=== PATIENT | male | born 1970 | race Caucasian/White ===

== ENCOUNTER 2023-12-09 05:48 | Emergency (ER) | payer MEDICAID, SELFPAY ==
[2023-12-09 05:50] VITALS: BP 172/102; PULSE 103; RESP 14; TEMP 36.6; O2SAT 100; BMI 33.3
--- NOTE | 2023-12-09 06:27 | EX.ED.DYSGE1 ---
HPI <Dr. Rangel Guzmán DO - Last Filed: 12/09/23 08:09> History of Present Illness Chief Complaint: Anxiety Informant: patient Onset/Context/Timing Onset: Today Context: Sudden Onset Timing: Continuous Quality: Aching, cramping Location: Left abdomen and left chest Worsened by: Nothing Relieved by: Nothing Narrative Narrative: Patient presents with chest pain, sweating, and abdominal pain that began today. Patient states he was recently admitted to [facility] and had his antidepressant changed. Patient states that since that time he has been having some increasing tremors and feeling disoriented. Patient states that when he woke up today he felt very disoriented and did not know where he was at. Patient states he woke up with diffuse sweating. Patient states he noted some pain in his chest. Patient states this is improving. Patient states he is also having some aching pain in the left side of his abdomen. Patient states that it is constant. Patient states nothing makes his symptoms better nothing makes them worse. [facility] <Dr. Rangel Guzmán DO - Last Filed: 12/09/23 08:09> [facility] Medical History (Updated 12/09/23 @ 09:[address] Lydia Bedoya DO) Anxiety Depressed Fibromyalgia Hypertension Home Medications Unobtainable 12/09/23 [History Last Taken Unknown] Allergy/AdvReac Type Severity Reaction Status Date / Time Penicillins Allergy Angioedema Verified 12/09/23 05:49 Surgical History no surgical history no surgical history Social History Smoking Status: Never smoker ROS <Dr. Rangel Guzmán DO - Last Filed: 12/09/23 08:09> ROS ED Constitutional Constitutional ED: Reports sweats; Denies chills or fever(s) Eyes Eyes: Denies blurry vision or change in vision ENT ENT ED: Denies rhinorrhea or sore throat Cardiovascular Cardiovascular: Reports chest pain; Denies palpitations Respiratory/Chest Respiratory/Chest: Denies cough or dyspnea Gastrointestinal Gastrointestinal: Reports abdominal pain, diarrhea and nausea; Denies melena or vomiting Genitourinary Genitourinary ED: Denies dysuria or hematuria Musculoskeletal Musculoskeletal: Denies back pain or neck pain Integumentary Reports rash; Denies abscess Neurologic Neurologic: Denies headache(s) or weakness Allergic/Immunologic Allergic/Immunologic ED: Denies mouth swelling or urticaria EXAM <Dr. Rangel Guzmán, DO - Last Filed: 12/09/23 08:09> Physical Exam Const Vital Signs: 12/09/23 05:50 12/09/23 06:36 Temperature 98 F Temperature Source Temporal Pulse Rate 103 H 100 Respiratory Rate 14 19 H Blood Pressure 172/102 H 165/107 H Blood Pressure Mean 125 126 Pulse Ox 100 100 Oxygen Delivery Method Room Air Positive well nourished and well developed General Appearance ED: well developed and NAD HEENT Reports moist mucous membranes Neck supple and no JVD Chest Wall inspection of chest normal and palpation of chest normal Resp normal respiratory effort and clear to auscultation bilaterally Cardio regular rate and regular rhythm GI non-distended Palpation: soft and tender LLQ and LUQ Neuro oriented x3, CN's II-XII intact bilaterally and no sensory deficits noted Sensorium / Orientation: alert Motor Exam: strength 5/5 throughout Psych mental status grossly normal <Dr. Lydia Bedoya, DO - Last Filed: 12/09/23 09:48> Physical Exam Const Vital Signs: 12/09/23 05:50 12/09/23 06:36 Temperature 98 F Temperature Source Temporal Pulse Rate 103 H 100 Respiratory Rate 14 19 H Blood Pressure 172/102 H 165/107 H Blood Pressure Mean 125 126 Pulse Ox 100 100 Oxygen Delivery Method Room Air MDM <Dr. Rangle Guzmán, DO - Last Filed: 12/09/23 08:09> MDM MDM Narrative Medical decision making narrative: Differential diagnosis includes medication side effect, cardiac dysrhythmia, cardiac ischemia, pneumonia, diverticulitis, colitis, ureteral calculus, urinary tract infection, pyelonephritis, and anxiety. EKG will be obtained to assess for cardiac dysrhythmia and cardiac ischemia. CBC will be obtained to assess for leukocytosis and anemia. Comprehensive metabolic profile will be obtained to assess for hepatic function, renal function, and electrolyte abnormality. Lipase will be obtained to assess for pancreatitis. Urinalysis will be obtained to assess for urinary tract infection and hematuria. High-sensitivity troponin will be obtained to assess for cardiac ischemia. 2-hour repeat high-sensitivity troponin will be obtained to assess for ongoing cardiac ischemia. CT scan of the abdomen and pelvis will be obtained to assess for diverticulitis, bowel obstruction, perforation. Chest x-ray will be obtained to assess for pneumonia and pneumothorax. PT with INR and PTT will be obtained to assess for coagulopathy. Lab Data Attestation: I reviewed the patient's lab results. Lab results narrative: CBC was reviewed and was within normal limits. PT was INR and PTT were reviewed and were within normal limits. Prehensile metabolic profile was reviewed and was within normal limits. Lipase was reviewed and was normal. Urinalysis was reviewed. There is no evidence of urinary tract infection or hematuria. Labs: Laboratory Results - last 24 hr 12/09/23 12/09/23 06:45 08:59 WBC 9.8 RBC 4.97 Hgb 15.9 Hct 47.6 MCV 95.8 H MCH 32.0 MCHC 33.4 RDW Std Deviation 45.6 H RDW Coeff of Hubert 12.9 Plt Count 305 MPV 9.7 Immature Gran % (Auto) 0.400 Neut % (Auto) 58.7 Lymph % (Auto) 28.0 [place] % (Auto) 9.6 Eos % (Auto) 2.1 Baso % (Auto) 1.2 H Absolute Neuts (auto) 5.7 Absolute Lymphs (auto) 2.74 Nucleated RBC % 0 PT 12.5 INR 0.9 APTT 26.0 Sodium 137 Potassium 4.1 Chloride 105 Carbon Dioxide 24.0 Anion Gap 8 BUN 6 L Creatinine 1.01 Estim Creat Clear Calc 109.52 Est GFR (MDRD) Af Amer 99 Est GFR (MDRD) Non-Af 82 BUN/Creatinine Ratio 5.9 L Glucose 118 H Calcium 9.2 Total Bilirubin 0.50 AST 49 H ALT 57 Alkaline Phosphatase 96 Troponin I High Sens 5 4 Total Protein 8.1 Albumin 3.9 Globulin 4.2 Albumin/Globulin Ratio 0.9 Lipase 26 Urine Color Yellow Urine Clarity Clear Urine pH 6.0 Ur Specific [place] 1.020 Urine Protein Negative Urine Glucose (UA) Normal Urine Ketones Negative Urine Occult Blood Negative Urine Nitrite Negative Urine Bilirubin Negative Urine Urobilinogen Normal Ur Leukocyte Esterase Negative Urine RBC 0 SEEN Urine WBC 0 SEEN Ur Squamous Epith Cells 0 SEEN Urine Bacteria 0 SEEN Urine Mucus 0 SEEN Radiography Diagnostic Testing: Clinical Impression(s) from Imaging Studies Abdomen/Pelvis CT 12/09/23 06:33 IMPRESSION: Questionable tiny gallstones in the neck of the gallbladder. Calcified splenic granulomas. Filling defects seen in the region of the cecum most likely representing fecal material. Electronically Signed: Yao Moses MD at 8:58 EST , Chest X-Ray 12/09/23 08:35 IMPRESSION: Scattered calcified granulomas. No acute abnormality is seen. Electronically Signed: Yao Moses MD at 8:47 EST , EKG Initial EKG: Attestation: I personally reviewed and interpreted this EKG as follows: Interpretation: No Acute Injury Pattern and Sinus Tachycardia (102) Comments: EKG was obtained. On my independent interpretation, it showed a sinus tachycardia with a rate of 102. TN interval, QRS interval, and QTc intervals were all normal. [place] was normal. There are no acute ST or T wave changes. Prior EKG tracings: not available for review Prior: No Prior Treatment and Re-Evaluation :: Patient was given a dose of Vistaril here. Care of the patient was turned over the oncoming physician pending CT and x-ray results. <Dr. Lydia Bedoya, DO - Last Filed: 12/09/23 09:48> [facility] MDM Narrative Medical decision making narrative: Differential diagnosis includes medication side effect, cardiac dysrhythmia, cardiac ischemia, pneumonia, diverticulitis, colitis, ureteral calculus, urinary tract infection, pyelonephritis, and anxiety. EKG will be obtained to assess for cardiac dysrhythmia and cardiac ischemia. CBC will be obtained to assess for leukocytosis and anemia. Comprehensive metabolic profile will be obtained to assess for hepatic function, renal function, and electrolyte abnormality. Lipase will be obtained to assess for pancreatitis. Urinalysis will be obtained to assess for urinary tract infection and hematuria. High-sensitivity troponin will be obtained to assess for cardiac ischemia. 2-hour repeat high-sensitivity troponin will be obtained to assess for ongoing cardiac ischemia. CT scan of the abdomen and pelvis will be obtained to assess for diverticulitis, bowel obstruction, perforation. Chest x-ray will be obtained to assess for pneumonia and pneumothorax. PT with INR and PTT will be obtained to assess for coagulopathy. Patient care turned over to me, Lydia Bedoya, awaiting results of CT abdomen pelvis as well as chest x-ray and delta troponin. Patient apparently presented this morning with pain in his left lower abdomen for over a week. He is also had some sweats this morning and felt anxious and like his chest hurt. Patient tells me that he is a alcoholic and his last drink was about 24 hours ago. Patient was given Vistaril here and he currently feels improved his chest pain is resolved. CT of the abdomen pelvis essentially with questionable tiny gallstones in the neck of the gallbladder otherwise no acute process. Chest x-ray was unremarkable. Patient asked if we have detox from alcohol here at the hospital I told him that we did and would be happy to facilitate that for him however he states he has to go home and does not want to go directly upstairs. He states he has some things that he needs to take care of at home. Patient normally drinks about 8 tall beers per day and has been doing that for years off-and-on. Suspect some of his symptomatology may have been related to alcohol withdrawal which is what he speculates as well he ALSO does have history of anxiety. He is not suicidal. He is currently going through some medication adjustments. He does not want to speak with a counselor. Lab Data Labs: Laboratory Results - last 24 hr 12/09/23 12/09/23 06:45 08:59 WBC 9.8 RBC 4.97 Hgb 15.9 Hct 47.6 MCV 95.8 H MCH 32.0 MCHC 33.4 RDW Std Deviation 45.6 H RDW Coeff of Hubert 12.9 Plt Count 305 MPV 9.7 Immature Gran % (Auto) 0.400 Neut % (Auto) 58.7 Lymph % (Auto) 28.0 [place] % (Auto) 9.6 Eos % (Auto) 2.1 Baso % (Auto) 1.2 H Absolute Neuts (auto) 5.7 Absolute Lymphs (auto) 2.74 Nucleated RBC % 0 PT 12.5 INR 0.9 APTT 26.0 Sodium 137 Potassium 4.1 Chloride 105 Carbon Dioxide 24.0 Anion Gap 8 BUN 6 L Creatinine 1.01 Estim Creat Clear Calc 109.52 Est GFR (MDRD) Af Amer 99 Est GFR (MDRD) Non-Af 82 BUN/Creatinine Ratio 5.9 L Glucose 118 H Calcium 9.2 Total Bilirubin 0.50 AST 49 H ALT 57 Alkaline Phosphatase 96 Troponin I High Sens 5 4 Total Protein 8.1 Albumin 3.9 Globulin 4.2 Albumin/Globulin Ratio 0.9 Lipase 26 Urine Color Yellow Urine Clarity Clear Urine pH 6.0 Ur Specific [place] 1.020 Urine Protein Negative Urine Glucose (UA) Normal Urine Ketones Negative Urine Occult Blood Negative Urine Nitrite Negative Urine Bilirubin Negative Urine Urobilinogen Normal Ur Leukocyte Esterase Negative Urine RBC 0 SEEN Urine WBC 0 SEEN Ur Squamous Epith Cells 0 SEEN Urine Bacteria 0 SEEN Urine Mucus 0 SEEN Radiography Diagnostic Testing: Clinical Impression(s) from Imaging Studies Abdomen/Pelvis CT 12/09/23 06:33 IMPRESSION: Questionable tiny gallstones in the neck of the gallbladder. Calcified splenic granulomas. Filling defects seen in the region of the cecum most likely representing fecal material. Electronically Signed: Yao Moses MD at 8:58 EST , Chest X-Ray 12/09/23 08:35 IMPRESSION: Scattered calcified granulomas. No acute abnormality is seen. Electronically Signed: Yao Moses MD at 8:47 EST , Discharge Plan Triage Chief Complaint: Anxiety ED Provider: Rangel Guzmán Dx/Rx/DC Orders Clinical Impression: Chest pain, Anxiety, Left sided abdominal pain, Alcohol withdrawal Instructions: ED Withdrawal Alcohol, ED Anxiety Reaction, ED Chest Pain, Uncertain Cause, ED Abdominal Pain Unkn Cause Male... Prescriptions: No Action Unobtainable Primary Care Provider: Shasha Newman NP Referrals: Shasha Newman NP, PREDICTIVE MAINTENANCE SPECIALIST-C [Primary Care Provider] - 3-5 Days Disposition Disposition: Home, Self Care
--- NOTE | 2023-12-09 06:33 | CT_ITS ---
STUDY: CT ABDOMEN AND PELVIS WITH CONTRAST REASON FOR EXAM: Male, 53 years old. Left-sided abdominal pain. Chest pain. RADIATION DOSAGE (If Supplied By Facility): CTDIvol = ( 17.43 ) mGy, DLP = ( 1324.72 ) mGycm TECHNIQUE: Transaxial images were obtained from the dome of the diaphragm to the symphysis pubis without oral contrast. 100ML ISOVUE 300 was administered. Sagittal and coronal images were reconstructed. Individualized dose optimization techniques were used for this CT. COMPARISON: None. FINDINGS: The visualized lung bases are unremarkable. The visualized portions of the heart are within normal limits. Normal liver. Question tiny gallstones in the neck of the gallbladder. There are multiple benign calcified granulomata of the spleen. Normal pancreas. Normal bilateral adrenal glands. Normal right kidney. Normal left kidney. There is a small hiatal hernia. Normal small intestine. Filling defects are seen in the cecum most likely representing fecal material. The appendix is visualized and appears normal. Normal abdominal aorta. Normal inferior vena cava. Normal retroperitoneum. Normal urinary bladder. Normal abdominal wall. There are mild degenerative changes of the visualized lumbar spine. CT/Abdomen/Pelvis WITH Contrast IMPRESSION: Questionable tiny gallstones in the neck of the gallbladder. Calcified splenic granulomas. Filling defects seen in the region of the cecum most likely representing fecal material. Electronically Signed: Yao Moses MD at 8:58 EST ,
--- NOTE | 2023-12-09 06:33 | EKG12_ITS ---
Test Reason : CP Blood Pressure : / mmHG Vent. Rate : 102 BPM Atrial Rate : 102 BPM P-R Int : 138 ms QRS Dur : 090 ms QT Int : 342 ms P-R-T Axes : 064 051 029 degrees QTc Int : 445 ms Sinus tachycardia Otherwise normal ECG Confirmed by ARVIND TAPIA, AMANDA ([id number]), sound editor VISHNU OVALLES ([id number]) on 12/10/2023 9:41:25 AM Referred By: CHARLES Confirmed By:AMANDA SAMUELS MD
[2023-12-09 06:36] VITALS: BP 165/107; PULSE 100; RESP 19; O2SAT 100
--- NOTE | 2023-12-09 06:41 | ED.RN ---
NO OLD EKG
[2023-12-09 06:50] LABS: Bacteria 0 SEEN /hpf (None Seen); Mucous, Urine 0 SEEN /hpf (<or=2+); Red Blood Cells-Urine 0 SEEN /hpf (0-5); Squamous Epithelial Cells - UA 0 SEEN /hpf (0-5); White Blood Cells 0 SEEN /hpf (0-5)
[2023-12-09 06:52] LABS: Absolute Lymphocyte Count 2.74 X10^3/uL (0.83-4.51); Absolute Neutrophil Count 5.7 X10^3/uL (2.0-7.7); Basophil# 0.12 X10^3/uL; Basophil% 1.2 % (0-1); Eosinophil# 0.21 X10^3/uL; Eosinophils% 2.1 % (0-5); Hematocrit 47.6 % (40-54); Hemoglobin 15.9 g/dL (13.0-16.5); Lymphocyte # 2.74 X10^3/ul (0.83-4.51); Mean Corp Hgb Conc 33.4 g/dL (32-36); Mean Corpuscular Volume 95.8 fL (80-94); Mean Platelet Vol. 9.7 fl (6.2-12.0); Monocyte# 0.94 X10^3/uL; Monocyte% 9.6 % (0-10); NRBC Flagged by Analyzer 0 % (0-5); Neutrophil # 5.73 X10^3/uL (2.7-7.7); Neutrophil % 58.7 % (47-70); Platelet Count 305 K/mm3 (150-450); RBC Distribution Width CV 12.9 % (11.6-14.6); RBC Distribution Width SD 45.6 fl (35.1-43.9); Red Blood Count 4.97 M/mm3 (4.6-6.2); White Blood Count 9.8 K/mm3 (4.4-11.0)
[2023-12-09 06:55] LABS: Color, Urine Yellow (Yellow); Glucose, Dipstick Normal (Normal); Ketone-Dipstick Negative (Negative); Leukocyte Esterase-Dipstick Negative /ul (Negative); Nitrite-Dipstick Negative (Negative); Occult Blood-Urine Negative /ul (Negative); Protein-Dipstick Negative (Negative); Urine Bilirubin Dipstick Negative (Negative); Urine Clarity Clear (Clear); Urine Urobilinogen Normal (Normal)
[2023-12-09] MEDS: 0.9% Normal Saline (1000mL) 1,000 ML 1000 ML IV (07:00)
[2023-12-09] MEDS: hydrOXYzine PAM 25 MG Capsule PO (07:00)
[2023-12-09 07:12] LABS: ALB/GLOB Ratio 0.9 RATIO (0.9-2.4); AST(SGOT) 49 U/L (15-37); Alanine Aminotransfer ALT/SGPT 57 U/L (16-61); Albumin, Serum 3.9 g/dL (3.2-5.0); Alkaline Phosphatase 96 U/L (45-117); Anion Gap 8 (5-15); BUN 6 mg/dL (7-18); BUN/Creat Ratio 5.9 RATIO (10-20); Calcium,Total 9.2 mg/dL (8.5-10.1); Chloride 105 mmol/L (98-107); Creatinine, Serum 1.01 mg/dL (0.70-1.30); EST Glomerular Filtration Rate 82 mL/min (>60); Est Glom Filt Rate - Afr Amer 99 mL/min (>60); Estimated Creatinine Clearance 109.52 ml/min; Globulin 4.2 g/dL (2.2-4.2); Glucose 118 mg/dL (74-106); Lipase 26 U/L (13-75); Potassium 4.1 mmol/L (3.5-5.1); Protein, Total 8.1 g/dL (6.4-8.2); Sodium Level 137 mmol/L (136-145); Troponin-I HS (w/2H Reflex) 5 pg/mL (3.0-78.0)
[2023-12-09 07:17] LABS: International Normalized Ratio 0.9; Prothrombin Time (Protime)PT. 12.5 SECONDS (11.7-14.9)
--- NOTE | 2023-12-09 08:35 | RAD_ITS ---
STUDY: X-RAY CHEST REASON FOR EXAM: Male, 53 years old. Chest pain TECHNIQUE: PA and lateral views of the chest. COMPARISON: None. FINDINGS: EKG electrodes are seen. Scattered calcified granulomas. No acute infiltrate is seen. There is no demonstrated pleural abnormality. Normal size heart. Normal mediastinum and pool. Normal visualized pulmonary arteries. Normal visualized aortic arch and descending thoracic aorta. There are diffuse degenerative changes of the visualized thoracic spine. Normal visualized ribs, clavicles, and shoulders. There is no demonstrated abnormality of the visualized soft tissue structures of the upper abdomen. RAD/Chest PA and Lateral IMPRESSION: Scattered calcified granulomas. No acute abnormality is seen. Electronically Signed: Yao Moses MD at 8:47 EST ,
[2023-12-09 08:49] LABS: Reflex Troponin-HS? (from REC) Y
[2023-12-09 09:24] LABS: Troponin-I HS 4 pg/mL (3.0-78.0)
[2023-12-09 09:36] VITALS: BP 168/64; PULSE 78; RESP 16; TEMP 36.4; O2SAT 99
== END 2023-12-09 09:59 | disposition home or self-care (01) ==
PROVIDERS: Emergency Provider Emergency Medicine; PCP Nurse Practitioner Family; Visit Provider Emergency Medicine
DX: F41.9 Anxiety disorder, unspecified (principal); F10.239 Alcohol dependence with withdrawal, unspecified; Y90.9 Presence of alcohol in blood, level not specified; R07.9 Chest pain, unspecified; R10.12 Left upper quadrant pain; R10.32 Left lower quadrant pain
CPT/HCPCS: 71046; 74177; 80053; 81001; 83690; 84484; 85025; 85610; 85730; 93005; A4216; J7030; Q9967; 96360; 99283

== ENCOUNTER 2023-12-09 22:25 | Observation (INO) | payer MEDICAID, SELFPAY ==
[2023-12-09 22:25] VITALS: BP 130/90; PULSE 95; RESP 18; TEMP 37.1; O2SAT 99; BMI 34.0
--- NOTE | 2023-12-09 22:55 | EX.ED.SAOD ---
HPI History of Present Illness Chief Complaint: Substance Abuse Narrative Narrative: 53-year-old male presenting for EtOH detox. Patient states he was seen earlier this morning but went home because he had to get some planning done. He states he has more family support now. He said people offer to help him. He is now ready for detox. He states he drank today. He admits to history of alcohol abuse. He states that his last time he detoxed he went for about a year. He states he drank a beer which led to 15. He states he is unable to stop drinking. He states he will get significant symptoms such as sweating and shakes but states he is never had a withdrawal seizure. He states he does not get sick or vomit. [facility] Medical History Anxiety Depressed Fibromyalgia Hypertension Home Medications Unobtainable 12/09/23 [History Last Taken Unknown] Allergy/AdvReac Type Severity Reaction Status Date / Time Penicillins Allergy Angioedema Verified 12/09/23 22:25 Social History Smoking Status: Never smoker ROS ROS ED Constitutional Constitutional ED: Denies chills, fever(s) or sweats Eyes Eyes: Denies blurry vision or change in vision ENT ENT ED: Denies ear pain or sore throat Cardiovascular Cardiovascular: Denies chest pain, palpitations or racing heartbeat Respiratory/Chest Respiratory/Chest: Denies cough, dyspnea or sputum Gastrointestinal Gastrointestinal: Denies abdominal pain, constipation, diarrhea, nausea or vomiting Genitourinary Genitourinary ED: Denies dysuria, hematuria or urinary frequency Musculoskeletal Musculoskeletal: Denies arthralgias, myalgias or neck pain Integumentary Denies abscess, Abrasions or rash Neurologic Neurologic: Denies headache(s), paresthesias or weakness Psychiatric Psychiatric: Denies anxiety, depression, suicidal ideation or suicidal thoughts Endocrine Endocrinology: Denies polydipsia or polyuria EXAM Physical Exam Const Vital Signs: 12/09/23 22:25 Temperature 98.7 F Temperature Source Temporal Pulse Rate 95 Respiratory Rate 18 Blood Pressure 130/90 H Blood Pressure Mean 103 Pulse Ox 99 Oxygen Delivery Method Room Air Positive well nourished General Appearance ED: NAD; Negative for pallor HEENT Reports moist mucous membranes atraumatic Eyes PERRL and EOMs intact bilaterally Lymph Lymphatic: no lymphadenopathy noted Resp normal respiratory effort and clear to auscultation bilaterally Cardio regular rate and regular rhythm GI soft to palpation Neuro oriented x3 and CN's II-XII intact bilaterally Sensorium / Orientation: alert Psych mental status grossly normal Skin General Skin Exam: Negative for jaundice or pallor MDM MDM MDM Narrative Medical decision making narrative: Patient presenting for EtOH detox. He states he drank today after going home. He states he has a plan in place now and is able to stay for detox. Patient's lab work earlier today was already normal. I will add some more screening blood work. Discussed with hospitalist for admission as his vital signs are stable. I do not believe he needs medicated currently. Impression: 1. EtOH abuse 2. Presentation region which detox Discharge Plan Triage Chief Complaint: Substance Abuse ED Provider: Bryan Mckenna Dx/Rx/DC Orders Prescriptions: No Action Unobtainable Primary Care Provider: Shasha Newman NP Referrals: Shasha Newman NP, SENIOR ENVIRONMENTAL PRACTICE LEADER-C [Primary Care Provider] -
[2023-12-09 23:01] LABS: Absolute Lymphocyte Count 3.69 X10^3/uL (0.83-4.51); Absolute Neutrophil Count 5.4 X10^3/uL (2.0-7.7); Basophil# 0.12 X10^3/uL; Basophil% 1.2 % (0-1); Eosinophil# 0.17 X10^3/uL; Eosinophils% 1.7 % (0-5); Hemoglobin 14.8 g/dL (13.0-16.5); Lymphocyte # 3.69 X10^3/ul (0.83-4.51); Lymphocyte % 35.9 % (19-41); Mean Corp Hgb Conc 33.6 g/dL (32-36); Mean Corpuscular Hgb 31.9 pg (27.0-32.0); Mean Corpuscular Volume 94.8 fL (80-94); Monocyte# 0.84 X10^3/uL; Monocyte% 8.2 % (0-10); NRBC Flagged by Analyzer 0 % (0-5); Neutrophil # 5.44 X10^3/uL (2.7-7.7); Neutrophil % 52.7 % (47-70); Platelet Count 257 K/mm3 (150-450); RBC Distribution Width CV 13.1 % (11.6-14.6); Red Blood Count 4.64 M/mm3 (4.6-6.2); White Blood Count 10.3 K/mm3 (4.4-11.0)
[2023-12-09 23:06] VITALS: BP 135/84; PULSE 67; RESP 18; TEMP 36.7; O2SAT 96
--- NOTE | 2023-12-09 23:07 | HP.PCM_ITS ---
[facility] General General Date of Admission: 12/09/23 Date of Service: 12/09/23 Chief Complaint: Alcohol abuse requesting withdrawal support HPI Narrative ANTONETTE DENIS, is a 53 M who presents to the emergency room with chief complaint of alcohol abuse requesting alcohol withdrawal support. Patient is a long-term alcoholic who states he now has supportive care at home to assist in his long- term rehabilitation following withdrawal treatment. States he drinks 9-15 tall boy beers daily and his last 1 was approximately 2 hours prior to arrival to the hospital. He was in the emergency room earlier today was having symptoms of anxiety and left on his own but came back when he realized he was unable to go through this by himself. Patient denies any chest pain, shortness of breath or fevers or chills at present time.He will be admitted to the general medical floor and placed on alcohol withdrawal protocol. [facility] Medical History Anxiety Depressed Fibromyalgia Hypertension Home Medications Unobtainable 12/09/23 [History Last Taken Unknown] Allergy/AdvReac Type Severity Reaction Status Date / Time Penicillins Allergy Angioedema Verified 12/09/23 22:25 Social History Smoking Status: Never smoker ROS Constitutional Constitutional: Denies chills or fever(s) Eyes Eyes: Denies change in vision ENT HEENT: Denies abnormal hearing Cardiovascular Cardiovascular: Denies chest pain Respiratory/Chest Respiratory/Chest: Denies cough or shortness of breath at rest Gastrointestinal Gastrointestinal: Denies abdominal pain Genitourinary Genitourinary: Denies urinary frequency Musculoskeletal Musculoskeletal: Denies back pain Integumentary Integumentary: Denies jaundice Neurologic Neurologic: Denies abnormal gait or abnormal speech Psychiatric Psychiatric: Reports anxiety Vital Signs Vital Signs Vital Signs: 12/09/23 22:25 Temperature 98.7 F Temperature Source Temporal Pulse Rate 95 Respiratory Rate 18 Blood Pressure 130/90 H Blood Pressure Mean 103 Pulse Ox 99 Oxygen Delivery Method Room Air Weight Weight: 257 lb 6.4 oz Body Mass Index (BMI) 34.0 Physical Exam Const oriented x3 General Appearance: cooperative and well developed HEENT normocephalic and head/scalp atraumatic Neck no lymphadenopathy Lymph Lymphatic: no lymphadenopathy noted Resp normal respiratory effort, normal air movement and clear to auscultation bi laterally Cardio regular rate, regular rhythm, S1 normal heart sound and S2 normal heart sound GI normal to inspection, nondistended, normoactive bowel sounds Extremity normal capillary refill Skin General Skin Exam: no breakdown Neuro no focal motor deficits and no sensory deficits noted Speech: speech normal Psych Mood & Affect: anxious Results Lab / Micro Data 12/09/23 22:54 12/09/23 22:54 Labs: Laboratory Results - last 24 hr 12/09/23 22:54: WBC 10.3, RBC 4.64, Hgb 14.8, Hct 44.0, MCV 94.8 H, MCH 31.9, MCHC 33.6, RDW Std Deviation 45.0 H, RDW Coeff of Hubert 13.1, Plt Count 257, MPV 10.0, Immature Gran % (Auto) 0.300, Neut % (Auto) 52.7, Lymph % (Auto) 35.9, Mon o % (Auto) 8.2, Eos % (Auto) 1.7, Baso % (Auto) 1.2 H, Absolute Neuts (auto) 5.4, Absolute Lymphs (auto) 3.69, Nucleated RBC % 0 Assessment & Plan Assessment/Plan (1) Alcohol abuse: PLAN: Plan 1 alcohol abuse requesting alcohol withdrawal support?admit patient to general m edical floor placed on [facility] protocol, contact case management for discharge planning and long-term support plan 2. DVT prophylaxis?patient is ambulatory and will not need prophylaxis at this time Charges/Coding Visit Charges Inpatient E&M: 16544 Init Hosp L2
[2023-12-09 23:17] LABS: AST(SGOT) 40 U/L (15-37); Alanine Aminotransfer ALT/SGPT 48 U/L (16-61); Albumin, Serum 3.8 g/dL (3.2-5.0); Alkaline Phosphatase 90 U/L (45-117); Anion Gap 7 (5-15); BUN 5 mg/dL (7-18); BUN/Creat Ratio 5.8 RATIO (10-20); Calcium,Total 9.6 mg/dL (8.5-10.1); Chloride 110 mmol/L (98-107); Creatinine, Serum 0.86 mg/dL (0.70-1.30); EST Glomerular Filtration Rate 97 mL/min (>60); Est Glom Filt Rate - Afr Amer 118 mL/min (>60); Estimated Creatinine Clearance 129.92 ml/min; Globulin 3.8 g/dL (2.2-4.2); Glucose 109 mg/dL (74-106); Protein, Total 7.6 g/dL (6.4-8.2); Sodium Level 141 mmol/L (136-145)
[2023-12-09 23:30] LABS: Amphetamine Urine VISTA NEGATIVE (<1000 ng/mL); Barbiturate Urine VISTA NEGATIVE (< 200 ng/mL); Benzodiazepine Urine VISTA NEGATIVE (< 200 ng/mL); Cocaine Urine VISTA NEGATIVE (< 300 ng/mL); Ecstacy Urine VISTA NEGATIVE (< 500 ng/mL); Methadone Urine VISTA NEGATIVE (< 300 ng/mL); PCP Urine VISTA NEGATIVE (< 25 ng/mL); THC Urine VISTA NEGATIVE (< 50 ng/mL); Vista UDS pH Range 5
[2023-12-09 23:57] VITALS: BMI 32.1
[2023-12-10 00:15] VITALS: BP 156/104; PULSE 77; RESP 18; TEMP 36.5; O2SAT 99
[2023-12-10] MEDS: LORazepam 1 MG Tablet PO ×6 (00:19→19:59)
[2023-12-10] MEDS: Nortriptyline 25 MG Capsule PO ×2 (00:48→20:01)
[2023-12-10 04:03] VITALS: BP 133/87; PULSE 69; RESP 16; TEMP 36.4; O2SAT 98
[2023-12-10 07:45] VITALS: BP 121/80; PULSE 74; RESP 16; TEMP 36.5; O2SAT 98
[2023-12-10] MEDS: Folic Acid 1 MG Tablet PO (07:46)
[2023-12-10] MEDS: Thiamine Hydrochloride 100 MG Tablet PO (07:46)
--- NOTE | 2023-12-10 08:50 | ADDICTION ---
clinician met with client to discuss his hx of alcohol use and further tx options. client was cooperative, however, appears ambivalent towards further tx. clinician discussed options in [place] area. client was somewhat agreeable to learn more about IOP and AA meetings. client reported no hx of tx. upon release from detox he reported he may live with son ([facility]). clinician will follow up with client on 12/11/23 to further discuss/finalize a tx plan upon discharge.
--- NOTE | 2023-12-10 09:23 | PCM.PN.HOSP ---
Subjective Subjective Doing well, no issues overnight. CIWA score 5 Objective Data Objective Data Vital Signs: Vital Signs Temp Pulse Resp BP Pulse Ox O2 Del Method 97.7 F L 74 16 121/80 H 98 Room Air 12/10/23 07:45 12/10/23 07:45 12/10/23 07:45 12/10/23 07:45 12/10/23 07:45 12/10/23 07:45 Oxygen Delivery Method Room Air Weight: 243 lb 2.718 oz Body Mass Index (BMI) 32.1 Intake & Output: Intake and Output for Last 24 Hours 12/09/23 12/10/23 12/11/23 03:59 03:59 03:59 Intake Total 600 / 600 Balance 600 / 600 Lab / Micro Data 12/09/23 22:54 12/09/23 22:54 Labs: Laboratory Results - last 24 hr 12/09/23 22:54: WBC 10.3, RBC 4.64, Hgb 14.8, Hct 44.0, MCV 94.8 H, MCH 31.9, MCHC 33.6, RDW Std Deviation 45.0 H, RDW Coeff of Hubert 13.1, Plt Count 257, MPV 10.0, Immature Gran % (Auto) 0.300, Neut % (Auto) 52.7, Lymph % (Auto) 35.9, [place] % (Auto) 8.2, Eos % (Auto) 1.7, Baso % (Auto) 1.2 H, Absolute Neuts (auto) 5.4, Absolute Lymphs (auto) 3.69, Nucleated RBC % 0, Sodium 141, Potassium 4.0, Chloride 110 H, Carbon Dioxide 24.0, Anion Gap 7, BUN 5 L, Creatinine 0.86, Estim Creat Clear Calc 129.92, Est GFR (MDRD) Af Amer 118, Est GFR (MDRD) Non-Af 97, BUN/Creatinine Ratio 5.8 L, Glucose 109 H, Calcium 9.6, Total Bilirubin 0.30, AST 40 H, ALT 48, Alkaline Phosphatase 90, Total Protein 7.6, Albumin 3.8, Globulin 3.8, Albumin/Globulin Ratio 1.0, Ethyl Alcohol 203.0 12/09/23 23:05: Urine Opiates Screen NEGATIVE, Urine Methadone Screen NEGATIVE, Ur Barbiturates Screen NEGATIVE, Ur Phencyclidine Scrn NEGATIVE, Ur Amphetamines Screen NEGATIVE, MDMA (Ecstasy) Screen NEGATIVE, U Benzodiazepines Scrn NEGATIVE, Urine Cocaine Screen NEGATIVE, U Cannabinoids Screen NEGATIVE, Ur Drug Screen Comment Physical Exam Narrative General: Alert, Oriented x3, Cooperative, No apparent distress HEENT: Atraumatic, PERRLA, EOMI, Normocephalic Oral: Moist Mucosa Neck: Supple, No JVD Lungs: Clear to auscultation, Normal air movement, No rhonchi, No wheeze, No rales Cardiovascular: Regular rate, Regular Rhythm, Normal S1, Normal S2, No murmurs Abdomen: Soft, Non Tender, Non-Distended, No Hepato-splenomegaly Extremities: No edema, Capillary Refill Less than 3 Seconds Skin: No rashes, No breakdown Musculoskeletal: No Tenderness to Palpation of Joints or Extremities Neurological: No focal neurological deficits, Motor Exam 5/5 strength throughout, Sensory exam intact to light touch and pain Psych/Mental Status: Flat Assessment & Plan Assessment/Plan (1) Alcohol abuse: PLAN: Plan 1. Alcohol withdrawal/anxiety/depression ? Continue the alcohol withdrawal protocol ? Continue with his home mental health medications ? Will have him follow-up with 180 develop an outpatient treatment plan 2. HTN ? Blood pressure stable ? Can resume losartan ? We will monitor make adjustments as necessary 3. GERD ? Stable ? Continue with PPI 4. Gout ? Stable ? Continue with allopurinol DVT: Ambulation Charges/Coding Visit Charges Inpatient E&M: 27454 Subs Hosp L2
[2023-12-10] MEDS: Allopurinol 300 MG Tablet PO (10:27)
[2023-12-10] MEDS: hydrOXYzine PAM 25 MG Capsule 50 MG PO (10:27)
[2023-12-10] MEDS: Losartan Potassium 100 MG Tablet PO (10:27)
[2023-12-10] MEDS: Pantoprazole Sodium 40 MG Tablet PO (10:27)
[2023-12-10 11:50] VITALS: BP 145/94; PULSE 93; RESP 18; TEMP 36.9; O2SAT 99
[2023-12-10 15:47] VITALS: BP 131/80; PULSE 94; RESP 18; TEMP 36.9; O2SAT 97
[2023-12-10 19:58] VITALS: BP 137/90; PULSE 89; RESP 20; TEMP 36.7; O2SAT 96
[2023-12-10] MEDS: 0.9% Saline Lock 10 ML Syringe IV (20:05)
[2023-12-11 00:09] VITALS: BP 150/88; PULSE 83; RESP 22; TEMP 36.6; O2SAT 99
[2023-12-11] MEDS: LORazepam 1 MG Tablet PO ×6 (00:12→20:54)
[2023-12-11 04:21] VITALS: BP 139/69; PULSE 65; RESP 20; TEMP 36.7; O2SAT 98
[2023-12-11 08:28] VITALS: BP 150/103; PULSE 94; RESP 18; TEMP 36.6; O2SAT 97
[2023-12-11] MEDS: Folic Acid 1 MG Tablet PO (08:31)
[2023-12-11] MEDS: Thiamine Hydrochloride 100 MG Tablet PO (08:31)
[2023-12-11] MEDS: Losartan Potassium 100 MG Tablet PO (08:31)
[2023-12-11] MEDS: Pantoprazole Sodium 40 MG Tablet PO (08:31)
[2023-12-11] MEDS: Allopurinol 300 MG Tablet PO (08:31)
--- NOTE | 2023-12-11 09:24 | PCM.PN.HOSP ---
Subjective Subjective Doing well, no issues overnight. CIWA score of 8 Objective Data Objective Data Vital Signs: Vital Signs Temp Pulse Resp BP Pulse Ox O2 Del Method 97.9 F 94 18 150/103 H 97 Room Air 12/11/23 08:28 12/11/23 08:28 12/11/23 08:28 12/11/23 08:28 12/11/23 08:28 12/11/23 08:28 Oxygen Delivery Method Room Air Weight: 243 lb 2.718 oz Body Mass Index (BMI) 32.1 Intake & Output: Intake and Output for Last 24 Hours 12/10/23 12/11/23 12/12/23 03:59 03:59 03:59 Intake Total 800 / 800 300 / 300 Balance 800 / 800 300 / 300 Lab / Micro Data 12/09/23 22:54 12/09/23 22:54 Physical Exam Narrative General: Alert, Oriented x3, Cooperative, No apparent distress HEENT: Atraumatic, PERRLA, EOMI, Normocephalic Oral: Moist Mucosa Neck: Supple, No JVD Lungs: Clear to auscultation, Normal air movement, No rhonchi, No wheeze, No rales Cardiovascular: Regular rate, Regular Rhythm, Normal S1, Normal S2, No murmurs Abdomen: Soft, Non Tender, Non-Distended, No Hepato-splenomegaly Extremities: No edema, Capillary Refill Less than 3 Seconds Skin: No rashes, No breakdown Musculoskeletal: No Tenderness to Palpation of Joints or Extremities Neurological: No focal neurological deficits, Motor Exam 5/5 strength throughout, Sensory exam intact to light touch and pain Psych/Mental Status: Flat Assessment & Plan Assessment/Plan (1) Alcohol abuse: PLAN: Plan 1. Alcohol withdrawal/anxiety/depression ? Continue the alcohol withdrawal protocol ? Continue with his home mental health medications ? Will have him follow-up with 180 develop an outpatient treatment plan 2. HTN ? Blood pressure stable ? Can resume losartan ? We will monitor make adjustments as necessary 3. GERD ? Stable ? Continue with PPI 4. Gout ? Stable ? Continue with allopurinol DVT: Ambulation Charges/Coding Visit Charges Inpatient E&M: 66742 Subs Hosp L2
--- NOTE | 2023-12-11 10:45 | ADDICTION ---
Met with pt to discuss d/c planning. Pt plans to move with his son up in [facility]. Pt was agreeable to resources in the area, however does not know what he wants to do treatment [place] and will decide once he is living up there. A list of resources were given.
[2023-12-11] MEDS: Loperamide 2 MG Capsule PO (13:59)
[2023-12-11] MEDS: hydrOXYzine PAM 25 MG Capsule 50 MG PO ×2 (13:59→21:01)
[2023-12-11 14:00] VITALS: BP 154/87; PULSE 89; RESP 18; TEMP 36.9; O2SAT 98
[2023-12-11] MEDS: Gabapentin 300 MG Capsule PO (15:40)
[2023-12-11 17:59] VITALS: BP 152/94; PULSE 97; RESP 18; TEMP 37.1; O2SAT 98
[2023-12-11] MEDS: Nortriptyline 25 MG Capsule PO (20:54)
[2023-12-11] MEDS: traZODone 100 MG Tablet PO (21:01)
[2023-12-11 21:02] VITALS: BP 121/66; PULSE 85; RESP 16; TEMP 36.9; O2SAT 97
[2023-12-12] MEDS: LORazepam 1 MG Tablet PO ×3 (00:02→08:23)
[2023-12-12 04:42] VITALS: BP 105/68; PULSE 81; RESP 16; TEMP 36.6; O2SAT 97
[2023-12-12] MEDS: Losartan Potassium 100 MG Tablet PO (08:19)
[2023-12-12] MEDS: Allopurinol 300 MG Tablet PO (08:19)
[2023-12-12] MEDS: Thiamine Hydrochloride 100 MG Tablet PO (08:20)
[2023-12-12] MEDS: Pantoprazole Sodium 40 MG Tablet PO (08:20)
[2023-12-12] MEDS: Folic Acid 1 MG Tablet PO (08:20)
[2023-12-12 08:57] VITALS: BP 130/86; PULSE 85; RESP 16; TEMP 36.7; O2SAT 97
[2023-12-12 09:01] VITALS: BP 130/86; PULSE 85; RESP 16; TEMP 36.7; O2SAT 97
--- NOTE | 2023-12-12 10:20 | DCINST_ITS ---
Discharge Instructions Diet Discharge Diet: No restrictions Activity Discharge Activity: Return to Normal Activity Dressing / Incision Call your doctor if you observe: Fever of 101 or Higher, Shortness of breath, Dizziness, Fainting spells, Swelling in the ankles, Chest pain and Increased palpitations (irregular heartbeat) Follow Up Care Test Results: Test results from this visit will be discussed in further detail at your follow- up appointment, if applicable. Discharge Plan Admission Admit Date/Time: 12/09/23 23:11 Attending Provider: Shamar Mendoza Primary Care Provider: Shasha Newman NP Consulting Providers: Sarbjit Chua Discharge Orders/Prescriptions Prescriptions: Continued bupropion HCl 150 mg tablet extended release 24 hr 150 mg PO DAILY Patient Comments: TAKE 1 TABLET BY MOUTH DAILY losartan 100 mg tablet 100 mg PO DAILY Patient Comments: TAKE 1 TABLET BY MOUTH DAILY for high blood pressure omeprazole 40 mg capsule,delayed release(DR/EC) 40 mg PO DAILY Patient Comments: TAKE 1 CAPSULE BY MOUTH DAILY for GERD allopurinol 300 mg tablet 300 mg PO DAILY Patient Comments: Take 1 tablet by mouth once daily. dicyclomine 10 mg capsule 10 mg PO Q8H PRN PRN (Reason: stomach cramps) Patient Comments: Take 1 capsule by mouth every 8 hours as needed (abdomial cramps). cetirizine 10 mg tablet 10 mg PO DAILY Patient Comments: Take 1 tablet by mouth once daily. hydroxyzine pamoate 25 mg capsule 25 mg PO Q4H PRN (Reason: anxiety) Patient Comments: TAKE 1 CAPSULE BY MOUTH EVERY 4 HOURS NEEDED FOR ANXIETY cholecalciferol (vitamin D3) [Vitamin D3] 25 mcg (1,000 unit) tablet 25 mcg PO DAILY Patient Comments: Take 2 tablets by mouth once daily. colchicine 0.6 mg tablet 1.2 mg PO DAILY PRN Patient Comments: Take 2 tablets upon flare up and 1 tablet one hour later. multivitamin with folic acid [Tab-A-Robert] 400 mcg tablet 1 tab PO DAILY Patient Comments: Take 1 tablet by mouth daily with breakfast. nortriptyline 25 mg capsule 25 mg PO QHS Patient Comments: TAKE 1 CAPSULE BY MOUTH EVERY NIGHT AT BEDTIME FOR INSOMNIA and pain Referrals / Follow Up: Shasha Newman NP, [employer] [Primary Care Provider] - Within 1 Week Disposition Disposition (needs filled in before D/C Order can be placed): Home, Self Care
--- NOTE | 2023-12-12 11:48 | DS.PCM_ITS ---
Providers Date of Admission: 12/09/23 Primary Care Physician: ENOCH Suh Reason For Visit: ALCOHOL ABUSE REQUESTING ALCOHOL WITHDRAWAL Diagnosis Discharge Diagnosis (1) Alcohol abuse: Status: Acute Code(s): F10.10 - Alcohol abuse, uncomplicated Medications at Discharge Home Medications allopurinol 300 mg tablet 300 mg PO DAILY 12/09/23 bupropion HCl 150 mg 24 hr tablet, extended release 150 mg PO DAILY 12/09/23 cetirizine 10 mg tablet 10 mg PO DAILY 12/09/23 dicyclomine 10 mg capsule 10 mg PO Q8H PRN PRN stomach cramps 12/09/23 hydroxyzine pamoate 25 mg capsule 25 mg PO Q4H PRN anxiety 12/09/23 losartan 100 mg tablet 100 mg PO DAILY 12/09/23 omeprazole 40 mg capsule,delayed release 40 mg PO DAILY 12/09/23 cholecalciferol (vitamin D3) 25 mcg (1,000 unit) tablet (Vitamin D3) 25 mcg PO DAILY SUPPLEMENT 12/10/23 colchicine 0.6 mg tablet 1.2 mg PO DAILY PRN GOUT 12/10/23 multivitamin with folic acid 400 mcg tablet (Tab-A-Robert) 1 tab PO DAILY SUPPLEMENT 12/10/23 nortriptyline 25 mg capsule 25 mg PO QHS DEPRESSION/INSOMNIA 12/10/23 Hospital Course Operations None Procedures None Summary of Care Provided Minutes Spent on Discharge: 33 Hospital Course: Per HPI: ANTONETTE DENIS, is a 53 M who presents to the emergency room with chief complaint of alcohol abuse requesting alcohol withdrawal support. Patient is a long-term alcoholic who states he now has supportive care at home to assist in his long-term rehabilitation following withdrawal treatment. States he drinks 9-15 tall boy beers daily and his last 1 was approximately 2 hours prior to arrival to the hospital. He was in the emergency room earlier today was having symptoms of anxiety and left on his own but came back when he realized he was unable to go through this by himself. Patient denies any chest pain, shortness of breath or fevers or chills at present time.He will be admitted to the general medical floor and placed on alcohol withdrawal protocol. Hospital course: 1. Alcohol withdrawal/anxiety/depression?53-year-old male presents to the hospital requesting alcohol withdrawal. He says that he has gone through it before but not at this facility. He was placed on an Ativan taper and completed the alcohol withdrawal protocol well. He did meet with 180 who gave him resources as he is moving in with his son in [place], in terms of local AA meetings and support areas. He did not want to go inpatient rehab at this time. He will continue with his home health medications as well on discharge. I discussed with him the plan for discharge today he expressed understanding of the risk benefits of going home and would like to go home today. 2. Essential hypertension, GERD, gout are all chronic medical conditions which complicate his care. His home medications were continued where appropriate Physical Exam Narrative General: Alert, Oriented x3, Cooperative, No apparent distress HEENT: Atraumatic, PERRLA, EOMI, Normocephalic Oral: Moist Mucosa Neck: Supple, No JVD Lungs: Clear to auscultation, Normal air movement, No rhonchi, No wheeze, No rales Cardiovascular: Regular rate, Regular Rhythm, Normal S1, Normal S2, No murmurs Abdomen: Soft, Non Tender, Non-Distended, No Hepato-splenomegaly Extremities: No edema, Capillary Refill Less than 3 Seconds Skin: No rashes, No breakdown Musculoskeletal: No Tenderness to Palpation of Joints or Extremities Neurological: No focal neurological deficits, Motor Exam 5/5 strength throughout, Sensory exam intact to light touch and pain Psych/Mental Status: Flat Weight / BMI Weight Weight: 243 lb 2.718 oz Body Mass Index (BMI) 32.1 ABG / Lab / Microbiology Data 12/09/23 22:54 12/09/23 22:54 D/C Instructions Discharge Diet: No restrictions Call your doctor if you observe: Fever of 101 or Higher, Shortness of breath, Dizziness, Fainting spells, Swelling in the ankles, Chest pain and Increased palpitations (irregular heartbeat) Meaningful Use Info Meaningful Use Diagnoses (Choose all that apply): None applicable Discharge Plan Admission Admit Date/Time: 12/09/23 23:11 Attending Provider: Shamar Mendoza Primary Care Provider: Shasha Newman NP Consulting Providers: Sarbjit Chua Discharge Orders/Prescriptions Prescriptions: Continued bupropion HCl 150 mg tablet extended release 24 hr 150 mg PO DAILY Patient Comments: TAKE 1 TABLET BY MOUTH DAILY losartan 100 mg tablet 100 mg PO DAILY Patient Comments: TAKE 1 TABLET BY MOUTH DAILY for high blood pressure omeprazole 40 mg capsule,delayed release(DR/EC) 40 mg PO DAILY Patient Comments: TAKE 1 CAPSULE BY MOUTH DAILY for GERD allopurinol 300 mg tablet 300 mg PO DAILY Patient Comments: Take 1 tablet by mouth once daily. dicyclomine 10 mg capsule 10 mg PO Q8H PRN PRN (Reason: stomach cramps) Patient Comments: Take 1 capsule by mouth every 8 hours as needed (abdomial cramps). cetirizine 10 mg tablet 10 mg PO DAILY Patient Comments: Take 1 tablet by mouth once daily. hydroxyzine pamoate 25 mg capsule 25 mg PO Q4H PRN (Reason: anxiety) Patient Comments: TAKE 1 CAPSULE BY MOUTH EVERY 4 HOURS NEEDED FOR ANXIETY cholecalciferol (vitamin D3) [Vitamin D3] 25 mcg (1,000 unit) tablet 25 mcg PO DAILY Patient Comments: Take 2 tablets by mouth once daily. colchicine 0.6 mg tablet 1.2 mg PO DAILY PRN Patient Comments: Take 2 tablets upon flare up and 1 tablet one hour later. multivitamin with folic acid [Tab-A-Robert] 400 mcg tablet 1 tab PO DAILY Patient Comments: Take 1 tablet by mouth daily with breakfast. nortriptyline 25 mg capsule 25 mg PO QHS Patient Comments: TAKE 1 CAPSULE BY MOUTH EVERY NIGHT AT BEDTIME FOR INSOMNIA and pain Referrals / Follow Up: Shasha Newman NP, [employer] [Primary Care Provider] - Within 1 Week Disposition Disposition (needs filled in before D/C Order can be placed): Home, Self Care Charges/Coding Visit Charges Inpatient E&M: 57709 Disch Hosp >30min
== END 2023-12-12 12:11 | disposition home or self-care (01) ==
LOC: ED 23:01 → MS3 12-10 07:02
PROVIDERS: Admitting Provider Family Medicine; Emergency Provider Student in an Organized Health Care Education/Training Program; PCP Nurse Practitioner Family; Visit Provider Family Medicine
DX: F10.239 Alcohol dependence with withdrawal, unspecified (principal); I10 Essential (primary) hypertension; K21.9 Gastro-esophageal reflux disease without esophagitis; M10.9 Gout, unspecified; F41.9 Anxiety disorder, unspecified; Y90.9 Presence of alcohol in blood, level not specified; R07.9 Chest pain, unspecified; R10.12 Left upper quadrant pain; R10.32 Left lower quadrant pain; F32.A Depression, unspecified; Z79.899 Other long term (current) drug therapy
CPT/HCPCS: 71046; 74177; 80053; 80307; 80320; 81001; 83690; 84484; 85025; 85610; 85730; 93005; 96360; 99221; 99283; J7030; Q9967; A4216; G0378; G0480

== ENCOUNTER 2024-02-06 14:21 | Observation (INO) | payer MEDICAID, SELFPAY ==
[2024-02-06] VITALS (30 sets, daily range): BP systolic 108–198; BP diastolic 68–167; PULSE 75–130; RESP 14–29; TEMP 36.7–37.1; O2SAT 92–98; BMI 32.8; BMI 31.1
--- NOTE | 2024-02-06 14:43 | EX.ED.SAOD ---
HPI History of Present Illness Chief Complaint: ETOH Intox Informant: patient Narrative Narrative: 53-year-old male presenting to the emergency room requesting detox from alcohol. Patient states he has been drinking alcohol since the age of 13. He states that he occasionally pulls himself off the road to sober up. He states that he recognizes that long-term sobriety will need a more steady environment and long-term assistance. He states he drinks high percentage beers. He states he does not drink before or after work. He states he drinks to get himself to sleep. He admits to drinking until passing out. He denies any pending legal issues. He states this week he has had several emotional events involving his significant other. Patient notes longstanding history of depression/anxiety. He also has history of neuropathy and hypertension. [facility] Medical History Alcohol abuse Anxiety Depressed Fibromyalgia Hypertension Home Medications allopurinol 300 mg tablet 300 mg PO DAILY 12/09/23 [History Last Taken Unknown] bupropion HCl 150 mg 24 hr tablet, extended release 150 mg PO DAILY 12/09/23 [History Last Taken Unknown] cetirizine 10 mg tablet 10 mg PO DAILY 12/09/23 [History Last Taken Unknown] dicyclomine 10 mg capsule 10 mg PO Q8H PRN PRN stomach cramps 12/09/23 [History Last Taken Unknown] hydroxyzine pamoate 25 mg capsule 25 mg PO Q4H PRN anxiety 12/09/23 [History Last Taken Unknown] losartan 100 mg tablet 100 mg PO DAILY 12/09/23 [History Last Taken Unknown] omeprazole 40 mg capsule,delayed release 40 mg PO DAILY 12/09/23 [History Last Taken Unknown] cholecalciferol (vitamin D3) 25 mcg (1,000 unit) tablet (Vitamin D3) 25 mcg PO DAILY SUPPLEMENT 12/10/23 [History Last Taken Unknown] colchicine 0.6 mg tablet 1.2 mg PO DAILY PRN GOUT 12/10/23 [History Last Taken Unknown] multivitamin with folic acid 400 mcg tablet (Tab-A-Robert) 1 tab PO DAILY SUPPLEMENT 12/10/23 [History Last Taken Unknown] nortriptyline 25 mg capsule 25 mg PO QHS DEPRESSION/INSOMNIA 12/10/23 [History Last Taken Unknown] Allergy/AdvReac Type Severity Reaction Status Date / Time Penicillins Allergy Angioedema Verified 02/06/24 14:24 Social History Smoking Status: Never smoker ROS ROS ED Constitutional Constitutional ED: Denies chills, fever(s) or weight loss Eyes Eyes: Denies change in vision or diplopia ENT ENT ED: Denies ear pain, rhinorrhea or sore throat Cardiovascular Cardiovascular: Denies chest pain, orthopnea, palpitations or racing heartbeat Respiratory/Chest Respiratory/Chest: Denies cough, dyspnea or orthopnea Gastrointestinal Gastrointestinal: Denies abdominal pain, diarrhea, nausea or vomiting Genitourinary Genitourinary ED: Denies dysuria, hematuria or urinary frequency Musculoskeletal Musculoskeletal: Reports other Details: Chronic leg pain ; Denies arthralgias or myalgias Integumentary Denies abscess or rash Neurologic Neurologic: Denies headache(s) or weakness Psychiatric Psychiatric: Denies anxiety, depression, suicidal ideation or suicidal thoughts Endocrine Endocrinology: Denies polydipsia, polyphagia or polyuria Allergic/Immunologic Allergic/Immunologic ED: Denies mouth swelling, tongue swelling or urticaria EXAM Physical Exam Const Vital Signs: 02/06/24 14:21 02/06/24 14:21 Temperature 98.1 F 98.6 F Temperature Source Temporal Temporal Pulse Rate 130 H 118 H Respiratory Rate 18 16 Blood Pressure 133/92 H Blood Pressure Mean 105 Pulse Ox 94 98 Oxygen Delivery Method Room Air Room Air Positive well nourished, well developed and obese General Appearance ED: well developed Nutritional Appearance: obese HEENT Reports normocephalic, head/scalp atraumatic and moist mucous membranes Eyes PERRL and EOMs intact bilaterally Neck no lymphadenopathy, supple and no JVD Resp normal respiratory effort and clear to auscultation bilaterally Cardio regular rate, regular rhythm and no murmurs GI normal to inspection, nondistended, normoactive bowel sounds and non-tender Palpation: soft Back/Spine no CVA tenderness and normal ROM Extremity normal to inspection General Extremety ED: Negative for edema General Extremity: Negative for edema Neuro oriented x3 and CN's II-XII intact bilaterally Sensorium / Orientation: alert Motor Exam: strength 5/5 throughout Psych mental status grossly normal Psych Narrative: Seemingly pressured speech. However it is linear and coherent. Patient denies suicidal homicidal ideation. Mood & Affect: Negative for depressed or tearful Skin no rashes or lesions noted and no wounds MDM MDM MDM Narrative Medical decision making narrative: ED addiction labs ordered. Patient's alcohol level 250. INR is 1. I will speak with the hospitalist regarding admission History & Record Review Discussion w/independent historian: Patient Additional record(s) reviewed:: Prior inpatient record, Prior ED visit and Prior labs Lab Data Attestation: I reviewed the patient's lab results. Labs: Laboratory Results - last 24 hr 02/06/24 15:00 WBC 11.1 H RBC 4.67 Hgb 15.2 Hct 44.6 MCV 95.5 H MCH 32.5 H MCHC 34.1 RDW Std Deviation 47.6 H RDW Coeff of Hubert 13.4 Plt Count 308 MPV 9.4 Immature Gran % (Auto) 0.300 Neut % (Auto) 64.5 Lymph % (Auto) 23.1 [place] % (Auto) 11.0 H Eos % (Auto) 0.4 Baso % (Auto) 0.7 Absolute Neuts (auto) 7.2 Absolute Lymphs (auto) 2.57 Nucleated RBC % 0 PT 12.7 INR 1.0 Ethyl Alcohol 250.0 Discharge Plan Dx/Rx/DC Orders Clinical Impression: Alcohol abuse, Anxiety, Hypertension, Alcohol intoxication Disposition Disposition: Acute Care [facility]
[2024-02-06 15:06] LABS: Absolute Lymphocyte Count 2.57 X10^3/uL (0.83-4.51); Absolute Neutrophil Count 7.2 X10^3/uL (2.0-7.7); Basophil# 0.08 X10^3/uL; Basophil% 0.7 % (0-1); Eosinophil# 0.05 X10^3/uL; Eosinophils% 0.4 % (0-5); Hematocrit 44.6 % (40-54); Hemoglobin 15.2 g/dL (13.0-16.5); Lymphocyte # 2.57 X10^3/ul (0.83-4.51); Lymphocyte % 23.1 % (19-41); Mean Corp Hgb Conc 34.1 g/dL (32-36); Mean Corpuscular Hgb 32.5 pg (27.0-32.0); Mean Corpuscular Volume 95.5 fL (80-94); Mean Platelet Vol. 9.4 fl (6.2-12.0); Monocyte# 1.22 X10^3/uL; NRBC Flagged by Analyzer 0 % (0-5); Neutrophil # 7.18 X10^3/uL (2.7-7.7); Neutrophil % 64.5 % (47-70); Platelet Count 308 K/mm3 (150-450); RBC Distribution Width CV 13.4 % (11.6-14.6); RBC Distribution Width SD 47.6 fl (35.1-43.9); Red Blood Count 4.67 M/mm3 (4.6-6.2); White Blood Count 11.1 K/mm3 (4.4-11.0)
[2024-02-06 15:16] LABS: Prothrombin Time (Protime)PT. 12.7 SECONDS (11.7-14.9)
[2024-02-06 15:22] LABS: AST(SGOT) 42 U/L (15-37); Alanine Aminotransfer ALT/SGPT 41 U/L (16-61); Albumin, Serum 3.5 g/dL (3.2-5.0); Alkaline Phosphatase 62 U/L (45-117); Anion Gap 10 (5-15); BUN 9 mg/dL (7-18); BUN/Creat Ratio 9.1 RATIO (10-20); Calcium,Total 8.6 mg/dL (8.5-10.1); Chloride 107 mmol/L (98-107); Creatinine, Serum 0.99 mg/dL (0.70-1.30); EST Glomerular Filtration Rate 83 mL/min (>60); Est Glom Filt Rate - Afr Amer 101 mL/min (>60); Estimated Creatinine Clearance 111.12 ml/min; Globulin 3.6 g/dL (2.2-4.2); Glucose 80 mg/dL (74-106); Potassium 4.1 mmol/L (3.5-5.1); Protein, Total 7.1 g/dL (6.4-8.2); Sodium Level 138 mmol/L (136-145)
--- NOTE | 2024-02-06 15:25 | HP.PCM.HOS_ITS ---
HPI - General General Date of Admission: 02/06/24 Date of Service: 02/06/24 Chief Complaint: EtOH abuse, requesting withdrawal treatment. HPI Narrative The patient is a 53 y/o M w/ PMHx: Obesity, HTN, Anxiety and Depression, Fibromyalgia, Gout, GERD, Allergic rhinitis who presents to the [facility] ED on 02/06/24 with history of significant alcohol abuse since the age of 13 occasionally attempting to wean himself off but never successfully with significant high beer intake usually before or after work but never while he is working and often to get himself to sleep frequently drinking until he finally passes out with several recent emotional events over the last week involving his significant other prompting him to present to the ED to request detoxification. Patient last EtOH intake just prior to ED arrival. Currently he denies any over t alcohol withdrawal symptoms but notes that when he does start he usually has tremors and significant diaphoresis. Workup in the ED included T98.1, heart rate 130, BP 133/92, respiratory rate 18, 94% on room air, CBC with WBC 11.1, hemoglobin 15.2, platelet 308 without marked shift, unremarkable coags, CMP with AST 42 otherwise unremarkable, ethyl alcohol level 250. [facility] Medical History (Updated 02/06/24 @ 18:[address] Jeanette Smith MD) Alcohol abuse Allergic rhinitis Anxiety and depression Fibromyalgia GERD (gastroesophageal reflux disease) Gout Hypertension Obesity Home Medications allopurinol 300 mg tablet 300 mg PO DAILY 12/09/23 [History Last Taken Unknown] bupropion HCl 150 mg 24 hr tablet, extended release 150 mg PO DAILY 12/09/23 [History Last Taken Unknown] cetirizine 10 mg tablet 10 mg PO DAILY 12/09/23 [History Last Taken Unknown] dicyclomine 10 mg capsule 10 mg PO Q8H PRN PRN stomach cramps 12/09/23 [History Last Taken Unknown] hydroxyzine pamoate 25 mg capsule 25 mg PO Q4H PRN anxiety 12/09/23 [History Last Taken Unknown] omeprazole 40 mg capsule,delayed release 40 mg PO DAILY 12/09/23 [History Last Taken Unknown] cholecalciferol (vitamin D3) 25 mcg (1,000 unit) tablet (Vitamin D3) 25 mcg PO DAILY SUPPLEMENT 12/10/23 [History Last Taken Unknown] colchicine 0.6 mg tablet 1.2 mg PO DAILY PRN GOUT 12/10/23 [History Last Taken Unknown] multivitamin with folic acid 400 mcg tablet (Tab-A-Robert) 1 tab PO DAILY SUPPLEMENT 12/10/23 [History Last Taken Unknown] nortriptyline 25 mg capsule 25 mg PO QHS DEPRESSION/INSOMNIA 12/10/23 [History Last Taken Unknown] amlodipine 5 mg tablet 5 mg PO DAILY 02/06/24 [History Last Taken Unknown] aripiprazole 2 mg tablet 2 mg PO DAILY 02/06/24 [History Last Taken Unknown] buspirone 7.5 mg tablet 7.5 mg PO BID anxiety 02/06/24 [History Last Taken Unknown] cholecalciferol (vitamin D3) 25 mcg (1,000 unit) capsule 50 mcg PO DAILY 02/06/24 [History Last Taken Unknown] clonidine HCl 0.1 mg tablet 0.1 mg PO DAILY 02/06/24 [History Last Taken Unknown] diazepam 10 mg tablet 10 mg PO QHS sleep 02/06/24 [History Last Taken Unknown] folic acid 1 mg tablet 1 mg PO DAILY 02/06/24 [History Last Taken Unknown] ibuprofen 600 mg tablet 600 mg PO Q6H PRN PRN pain 02/06/24 [History Last Taken Unknown] losartan 100 mg-hydrochlorothiazide 25 mg tablet 1 tab PO DAILY 02/06/24 [History Last Taken Unknown] pantoprazole 40 mg tablet,delayed release 40 mg PO DAILY 02/06/24 [History Last Taken Unknown] pregabalin 75 mg capsule 75 mg PO BID 02/06/24 [History Last Taken Unknown] thiamine HCl (vitamin B1) 100 mg tablet 100 mg PO DAILY 02/06/24 [History Last Taken Unknown] Allergy/AdvReac Type Severity Reaction Status Date / Time Penicillins Allergy Angioedema Verified 02/06/24 14:24 Family History (Updated 02/06/24 @ 17:[address] Jeanette Smith MD) Mother Leukemia Father No problems noted. Surgical History (Updated 02/06/24 @ 17:[address] Jeanette Smith MD) History of dental surgery Social History (Updated 02/06/24 @ 17:[address] Jeanette Smith MD) household members: children Smoking Status: Never smoker alcohol intake: current alcohol intake frequency: 3 or more drinks per day details: 5-10 Tall boys daily, usually high % beer. ROS ROS Narrative Admission Review of Systems: CONSTITUTIONAL: No weight loss, fever, chills, + weakness or fatigue. HEENT: Eyes: No visual loss, blurred vision, double vision or yellow sclerae. Ears, Nose, Throat: No hearing loss, sneezing, congestion, runny nose or sore throat. SKIN: No rash or itching, lesions, wounds. CARDIOVASCULAR: No chest pain, chest pressure or chest discomfort, palpitations, edema, orthopnea, syncopal events. RESPIRATORY: No shortness of breath, cough or sputum, wheezing, hemoptysis. GASTROINTESTINAL: No anorexia, nausea, vomiting or diarrhea, abdominal pain, melena, BRBPR. GENITOURINARY: No dysuria, frequency, urgency or retention. NEUROLOGICAL: No headache, dizziness, syncope, paralysis, ataxia, numbness or tingling in the extremities, focal weakness, change in bowel or bladder control, seizure. MUSCULOSKELETAL: + muscle, back pain, joint pain or stiffness. HEMATOLOGIC: No anemia, bleeding or bruising. LYMPHATICS: No enlarged nodes. No history of splenectomy. PSYCHIATRIC: + History of anxiety and depression. ENDOCRINOLOGIC: No reports of sweating, cold or heat intolerance. No polyuria or polydipsia. ALLERGIES: + History of allergic rhinitis. Vital Signs Vital Signs Vital Signs: 02/06/24 14:21 02/06/24 14:21 Temperature 98.1 F 98.6 F Temperature Source Temporal Temporal Pulse Rate 130 H 118 H Respiratory Rate 18 16 Blood Pressure 133/92 H Blood Pressure Mean 105 Pulse Ox 94 98 Oxygen Delivery Method Room Air Room Air Weight Weight: 249 lb 6 oz Body Mass Index (BMI) 32.8 Physical Exam Narrative Physical Examination: General: Awake, alert, oriented x 3 and cooperative, seated upright in the ED bed, no acute distress. Skin: Mildly flushed color, normal turgor, no icterus, no cyanosis. HEENT: AT/NC, EOMI, PERRLA, MMM, no carotid bruits or JVD noted. Lungs: CTA bilaterally, moderate effort, mild decrease BL bases, no rales, ronchi or wheezing. Heart: Mildly tachycardic with regular rhythm; no gallop, rub audible. Abdomen: Soft, obese, NTTP, ND, distant normal BS, no appreciated HSM. Extremities: No cyanosis, clubbing, or edema. Neurological: Patient awake, alert, oriented as noted, cognitive function intact ; pupils equally reactive to light and accommodation, cranial nerves II-XII grossly normal, moving all 4 extremities, no focal deficits, strength preserved, no overt withdrawal symptoms including tremors or tactile disturbances reported or visible. Psychiatric: Affect appears flat, fatigued, no acute evidence of depressive or anxiety feelings but does have underlying history. Results Lab / Micro Data 02/06/24 15:00 02/06/24 15:00 Labs: Laboratory Results - last 24 hr 02/06/24 15:00: WBC 11.1 H, RBC 4.67, Hgb 15.2, Hct 44.6, MCV 95.5 H, MCH 32.5 H , MCHC 34.1, RDW Std Deviation 47.6 H, RDW Coeff of Hubert 13.4, Plt Count 308, MPV 9.4, Immature Gran % (Auto) 0.300, Neut % (Auto) 64.5, Lymph % (Auto) 23.1, [place] % (Auto) 11.0 H, Eos % (Auto) 0.4, Baso % (Auto) 0.7, Absolute Neuts (auto) 7.2, Absolute Lymphs (auto) 2.57, Nucleated RBC % 0, PT 12.7, INR 1.0, Sodium 138, Potassium 4.1, Chloride 107, Carbon Dioxide 21.0, Anion Gap 10, BUN 9, Creatinine 0.99, Estim Creat Clear Calc 111.12, Est GFR (MDRD) Af Amer 101, Est GFR (MDRD) Non-Af 83, BUN/Creatinine Ratio 9.1 L, Glucose 80, Calcium 8.6, Total Bilirubin 0.30, AST 42 H, ALT 41, Alkaline Phosphatase 62, Total Protein 7.1, Albumin 3.5, Globulin 3.6, Albumin/Globulin Ratio 1.0, Ethyl Alcohol 250.0 Assessment & Plan Assessment/Plan (1) Admitted to alcohol detoxification center: PLAN: Plan The patient is a 53 y/o M w/ PMHx: Obesity, HTN, Anxiety and Depression, Fibromyalgia, Gout, GERD, Allergic rhinitis who presents to the [facility] ED on 02/06/24 with history of significant alcohol abuse since the age of 13 occasionally attempting to wean himself off but never successfully with significant high beer intake usually before or after work but never while he is working and often to get himself to sleep frequently drinking until he finally passes out with several recent emotional events over the last week involving his significant other prompting him to present to the ED to request detoxification. #1. EtOH abuse with requested detoxification with impending EtOH Withdrawal: Will admit to [facility], routine labs obtained in the ED. Given interest in sobriety, will initiate and continue on protocol with taper course of Phenobarbital, as needed gabapentin, Catapres, Bentyl, Vistaril, IV fluids, IV antiemetics, Tylenol as needed for pain. Will consult Case management for assistance for transition to next level of rehabilitation care. Mag, phos pending. Maintain on CIWA protocol concurrently. #2. Hypertension: Continue home regimen including amlodipine, clonidine, losartan, hydrochlorothiazide, PRN hydralazine. #3. Anxiety and depression: We will continue patient home nortriptyline, appropriate and, BuSpar, aripiprazole and as needed agents. #4. Gout: We will continue patient home allopurinol regimen. #5. Obesity: Weight loss and lifestyle changes encouraged. #6. Allergic rhinitis: We will continue patient home cetirizine regimen. #7. GERD: We will continue patient on PPI. #8. DVT prophylaxis: Low risk, encourage ambulation. Charges/Coding Visit Charges Inpatient E&M: 11157 Init Hosp L2
[2024-02-06 16:10] LABS: Amphetamine Urine VISTA NEGATIVE (<1000 ng/mL); Barbiturate Urine VISTA NEGATIVE (< 200 ng/mL); Benzodiazepine Urine VISTA NEGATIVE (< 200 ng/mL); Cocaine Urine VISTA NEGATIVE (< 300 ng/mL); Ecstacy Urine VISTA NEGATIVE (< 500 ng/mL); Methadone Urine VISTA NEGATIVE (< 300 ng/mL); PCP Urine VISTA NEGATIVE (< 25 ng/mL); THC Urine VISTA NEGATIVE (< 50 ng/mL); Vista UDS pH Range 5
[2024-02-06 16:37] LABS: Magnesium 2.2 mg/dL (1.6-2.6); Phosphorus 2.8 mg/dL (2.5-4.9)
[2024-02-06] MEDS: LORazepam 1 MG Tablet PO (17:11)
[2024-02-06] MEDS: LORazepam 2 MG/ML Syringe IV (20:10)
[2024-02-06] MEDS: Phenobarbital Sodium 130 MG/ML Vial 100 MG IV (20:46)
[2024-02-06] MEDS: Gabapentin 300 MG Capsule PO (21:39)
[2024-02-06] MEDS: Phenobarbital 32.4 MG Tablet PO (21:39)
[2024-02-07] VITALS (7 sets, daily range): BP systolic 126–157; BP diastolic 82–97; PULSE 80–102; RESP 16; TEMP 36.6–37.2; O2SAT 95–98
[2024-02-07] MEDS: Lactated Ringers 1,000 ML 125 ML IV (00:18)
[2024-02-07] MEDS: Phenobarbital 32.4 MG Tablet PO ×6 (00:19→21:50)
[2024-02-07] MEDS: Nortriptyline 25 MG Capsule PO (00:19)
[2024-02-07] MEDS: hydrOXYzine PAM 25 MG Capsule 50 MG PO ×2 (00:21→15:34)
[2024-02-07] MEDS: Gabapentin 300 MG Capsule PO ×2 (05:31→20:25)
[2024-02-07] MEDS: Multivitamins,Ther W-Minerals Tablet 1 TABLET PO (07:31)
[2024-02-07] MEDS: Allopurinol 300 MG Tablet PO (07:32)
[2024-02-07] MEDS: Folic Acid 1 MG Tablet PO (07:32)
[2024-02-07] MEDS: Pantoprazole Sodium 40 MG Tablet PO (07:32)
[2024-02-07] MEDS: Losartan Potassium 100 MG Tablet PO (07:32)
[2024-02-07] MEDS: Thiamine Hydrochloride 100 MG Tablet PO (07:32)
[2024-02-07] MEDS: Loratadine 10 MG Tablet PO (07:32)
[2024-02-07] MEDS: buPROPion (XL) 150 MG TABLET.XL PO (07:33)
[2024-02-07] MEDS: Ensure Plus High Protein 120 ML LIQUID PO (07:35)
[2024-02-07 11:23] LABS: Hematocrit 42.1 % (40-54); Hemoglobin 14.7 g/dL (13.0-16.5); Mean Corp Hgb Conc 34.9 g/dL (32-36); Mean Corpuscular Hgb 33.6 pg (27.0-32.0); Mean Corpuscular Volume 96.1 fL (80-94); Mean Platelet Vol. 9.5 fl (6.2-12.0); Platelet Count 212 K/mm3 (150-450); RBC Distribution Width CV 13.3 % (11.6-14.6); RBC Distribution Width SD 47.5 fl (35.1-43.9); Red Blood Count 4.38 M/mm3 (4.6-6.2)
--- NOTE | 2024-02-07 11:30 | PN.HOSP_ITS ---
Subjective Subjective Patient admitted yesterday afternoon for alcohol detox. No acute events overnight. Saw patient at bedside this morning. Patient was sitting up comfortably in bed, conversing normally, in no acute distress. He appeared to have good energy and did not have any noticeable withdrawal symptoms. Patient states he has been tolerating the phenobarbital taper well, notes this has not necessarily knocked him out but it has kept his withdrawal symptoms at bay. Denies any other acute concerns. Objective Data Objective Data Vital Signs: Vital Signs Temp Pulse Resp BP Pulse Ox O2 Del Method 98 F 84 16 140/97 H 97 Room Air 02/07/24 09:01 02/07/24 09:01 02/07/24 09:01 02/07/24 09:01 02/07/24 09:01 02/07/24 09:01 Oxygen Delivery Method Room Air Weight: 107.229 kg Body Mass Index (BMI) 31.1 Intake & Output: Intake and Output for Last 24 Hours 02/05/24 02/06/24 02/07/24 23:59 23:59 23:59 Intake Total 1312.5 / 1312.5 Balance 1312.5 / 1312.5 Lab / Micro Data 02/07/24 11:00 02/07/24 11:00 Labs: Laboratory Results - last 24 hr 02/06/24 15:00: WBC 11.1 H, RBC 4.67, Hgb 15.2, Hct 44.6, MCV 95.5 H, MCH 32.5 H , MCHC 34.1, RDW Std Deviation 47.6 H, RDW Coeff of Hubert 13.4, Plt Count 308, MPV 9.4, Immature Gran % (Auto) 0.300, Neut % (Auto) 64.5, Lymph % (Auto) 23.1, [place] % (Auto) 11.0 H, Eos % (Auto) 0.4, Baso % (Auto) 0.7, Absolute Neuts (auto) 7.2, Absolute Lymphs (auto) 2.57, Nucleated RBC % 0, PT 12.7, INR 1.0, Sodium 138, Potassium 4.1, Chloride 107, Carbon Dioxide 21.0, Anion Gap 10, BUN 9, Creatinine 0.99, Estim Creat Clear Calc 111.12, Est GFR (MDRD) Af Amer 101, Est GFR (MDRD) Non-Af 83, BUN/Creatinine Ratio 9.1 L, Glucose 80, Calcium 8.6, Total Bilirubin 0.30, AST 42 H, ALT 41, Alkaline Phosphatase 62, Total Protein 7.1, Albumin 3.5, Globulin 3.6, Albumin/Globulin Ratio 1.0, Ethyl Alcohol 250.0 02/06/24 15:34: Urine Opiates Screen NEGATIVE, Urine Methadone Screen NEGATIVE, Ur Barbiturates Screen NEGATIVE, Ur Phencyclidine Scrn NEGATIVE, Ur Amphetamines Screen NEGATIVE, MDMA (Ecstasy) Screen NEGATIVE, U Benzodiazepines Scrn NEGATIVE , Urine Cocaine Screen NEGATIVE, U Cannabinoids Screen NEGATIVE, Ur Drug Screen Comment 02/06/24 16:04: Phosphorus 2.8, Magnesium 2.2 02/07/24 11:00: WBC 8.0, RBC 4.38 L, Hgb 14.7, Hct 42.1, MCV 96.1 H, MCH 33.6 H, MCHC 34.9, RDW Std Deviation 47.5 H, RDW Coeff of Hubert 13.3, Plt Count 212, MPV 9.5 Physical Exam Const alert, oriented x3 and no apparent distress Constitutional Narrative: Middle-age male, obese, joni appearance, otherwise sitting up comfortably in bed, conversing normally, in no acute distress. General Appearance: cooperative and comfortable HEENT normocephalic, head/scalp atraumatic, hearing grossly normal bilaterally, nasal mucous membranes and turbinates normal and moist oral mucous membranes HEENT Narrative: Redness noted on cheeks and over the bridge of the nose, appears to be a mild rash. Eyes PERRL, EOMs intact bilaterally and conjunctivae normal Neck full ROM Chest inspection of chest normal Resp normal respiratory effort, normal air movement, no use of accessory muscles and clear to auscultation bilaterally Cardio regular rate, regular rhythm, no murmurs and peripheral pulses 2+ throughout GI normal to inspection, nondistended, normoactive bowel sounds, soft to palpation, non-tender and non-distended Back/Spine normal ROM Extremity normal to inspection, full ROM and no pedal edema Skin no rashes or lesions noted Neuro no focal motor deficits and no sensory deficits noted Speech: speech normal Psych mental status grossly normal Assessment & Plan Assessment/Plan (1) Alcohol abuse: PLAN: Plan Patient is a 53-year-old male who presented to [facility] ED on 02/06/2024 for alcohol detoxification. 1. Alcohol abuse with high risk for alcohol withdrawal Recent hospitalization in November for alcohol withdrawal. Completed Ativan taper during that hospitalization and tolerated without issue. Met with 180 prior to discharge, was given resources, preferred to go home with outpatient treatment as needed. Per patient, has had several recent life stressors and has been drinking heavily again. Alcohol level 250 on admit. Last drink was shortly before coming to the ED but patient developed withdrawal symptoms while in the ED, and decision was made to place him on a phenobarbital taper. ? Tolerating phenobarbital taper well, continue taper with as needed medications per alcohol withdrawal order set. Case management following. Continue folate and thiamine. 2. Mild facial rash ? Patient reports worsening mild facial rash across both cheeks and over the bridge of his nose. Asked if the Wellbutrin could be causing this since he started this recently, but no side effects of hypersensitivity with Wellbutrin that I am aware of. Patient is on high-dose of allopurinol for gout, unclear how long exactly he has been on this. Allopurinol along with recent sun exposure could be the cause of his rash. Will hold allopurinol for now and monitor. Could give colchicine as needed for gout symptoms while inpatient. If rash begins to resolve, may need to consider alternative agent for gout going forward. Chronic medical conditions: ? Obesity: BMI 31 on admit. Encouraged lifestyle modifications. Complicates hospital course, care and prognosis. ? Mood disorder: Does report several recent life stressors, recently started Wellbutrin a few months ago with some improvement in symptoms. Currently stable. Continue home Wellbutrin, BuSpar. ? Hypertension: Continue home amlodipine. Continue home losartan, holding home hydrochlorothiazide for now. ? History of gout: Holding home allopurinol given facial rash as noted above. Can start colchicine if patient has any symptoms while inpatient. ? GERD: Stable. Continue home PPI. DVT prophylaxis: Lovenox CODE STATUS: Full code, unverified Expected disposition: Home, 2 to 3 days Total clinical time spent by myself addressing the patient's medical issues, reviewing all the data, and collaborating with patient's care team: 35 minutes. Charges/Coding Visit Charges Inpatient E&M: 10838 Subs Hosp L2
--- NOTE | 2024-02-07 11:37 | ADDICTION ---
This worker met with pt. He struggled to keep his eyes open and answer questions. Addiction therapist will meet with him tomorrow to complete assessments.
[2024-02-07 12:03] LABS: Anion Gap 5 (5-15); BUN 12 mg/dL (7-18); BUN/Creat Ratio 12.2 RATIO (10-20); Calcium,Total 8.6 mg/dL (8.5-10.1); Chloride 106 mmol/L (98-107); Creatinine, Serum 0.98 mg/dL (0.70-1.30); EST Glomerular Filtration Rate 84 mL/min (>60); Est Glom Filt Rate - Afr Amer 102 mL/min (>60); Estimated Creatinine Clearance 109.42 ml/min; Glucose 137 mg/dL (74-106); Potassium 3.9 mmol/L (3.5-5.1); Sodium Level 137 mmol/L (136-145)
[2024-02-07] MEDS: Nystatin Powder 15gm Bottle 1 APPLIC TOPICAL ×2 (12:52→21:50)
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
--- NOTE | 2024-02-07 15:40 | CASEMGMT ---
Social Work- Pt provided with a list of men's shelters for local area and [place] (requested) [facility]
--- NOTE | 2024-02-07 15:43 | CASEMGMT ---
Social Work- Pt reports that he and his son had an argument prior to admission and pt believes that he will no longer be able to reside with son. PT reports that he travels for work for weeks at a time and is reluctant to participate in a residential program for fear of losing his job. Pt reports that he has money for a hotel room for a week. Pt states that he is often in [place] for work and [facility] as well as local homeless fpc resources. [facility]
--- NOTE | 2024-02-07 16:03 | CHAPLAIN ---
Type of Pastoral Visit _x__ Initial Visit ___ Follow-up Visit ___ On-call Visit ___ General Patient Visit ___ Spiritual Assessment ___ Family Conference ___ Bereavement ___ Rapid Response ___ Code Blue ___ Other (describe below) Pastoral Care Referral From _x__ Patient ___ Family ___ Nurse ___ Physician ___ Investment Manager ___ Civil Drafting Technician ___ Other (describe below) Sacrament/Intervention _x__ Active listening ___ Anointing ___ Presybeterian ___ Bereavement ___ Communion _x__ Gill exploration ___ _x__ Life review _x__ Prayer ___ Reconciliation ___ Sacrament of Sick _x__ Supportive presence ___ Wedding ___ Other (describe below) Pastoral Comments patient is welcoming, admits his need to overcome alcohol abuse, and is struggling to know what to do; pt admits to being isolated from any family or friend support; pt is from two spouses and has one son of whom he has very little contact; pt is anabaptism but does not have a gill community; pt states he reads the Bible daily and knows he needs spiritual help; pt has a job but it requires much travel; pt acknowledges physical pain and that is one reason he drinks heavily at night; pt states he is not sure what kind of help is available or what is best for him; lots of affirmation given to patient for doing the next thing and receiving help; exploring what could help in relationships and coping skills; exploration of spiritual resources and how to connect again; all is welcomed by pt and he agrees to prayer and presence;
--- NOTE | 2024-02-07 16:35 | CASEMGMT ---
Social Work SW spoke w/Margarette from [facility] in regard to pt's housing situation, let her know SW gave pt resources for shelters, he may or may not be open to residential treatment programs. Son had called in stating pt cannot return to his home, and SW spoke w/pt, pt does seem aware that son does not want pt returning to his home. She will follow up w/pt and get a release to speak w/son if needed, however pt has not signed a release to speak w/son at this time. SW remains available as needed for any additional social service needs. LILY Howard
[2024-02-07] MEDS: Dicyclomine 10 MG Capsule 20 MG PO (20:25)
[2024-02-07] MEDS: Ibuprofen 600 MG Tablet PO (22:00)
[2024-02-07] MEDS: busPIRone 5 MG Tablet 7.5 MG PO (22:19)
[2024-02-08] VITALS (8 sets, daily range): BP systolic 121–159; BP diastolic 69–89; PULSE 62–82; RESP 16–18; TEMP 36.5–37.1; O2SAT 95–99
[2024-02-08] MEDS: Phenobarbital 32.4 MG Tablet PO ×6 (01:36→22:00)
[2024-02-08] MEDS: Nystatin Powder 15gm Bottle 1 APPLIC TOPICAL ×3 (05:28→22:00)
--- NOTE | 2024-02-08 07:00 | PN.HOSP_ITS ---
Reason for Visit Reason for Visit: Diagnoses Alcohol abuse, uncomplicated (02/06/24) Subjective Subjective Patient overnight with some nausea without emesis and diaphoresis but notes that his withdrawal symptoms are improving. He still does have the rash over his face which is continuous and mildly stippled and he notes itchy and uncomfortable. From further lengthy discussions he notes that he had been on Wellbutrin for at least a month and that he has been on neither medications for quite a duration of time. Discussed options and at this time patient is amenable to steroid and some Benadryl administration with further assessment. Patient denies fevers, chills, nausea, emesis, abdominal pain, chest pain or dyspnea. Objective Data Objective Data Vital Signs: Vital Signs Temp Pulse Resp BP Pulse Ox O2 Del Method 98.8 F 66 16 123/86 H 99 Room Air 02/08/24 05:25 02/08/24 05:25 02/08/24 05:25 02/08/24 05:25 02/08/24 05:25 02/08/24 05:25 Oxygen Delivery Method Room Air Weight: 236 lb 6.4 oz Body Mass Index (BMI) 31.1 Intake & Output: Intake and Output for Last 24 Hours 02/06/24 02/07/24 02/08/24 23:59 23:59 23:59 Intake Total 3912.5 / 3912.5 100 / 100 Balance 3912.5 / 3912.5 100 / 100 Lab / Micro Data 02/07/24 11:00 02/07/24 11:00 Labs: Laboratory Results - last 24 hr 02/07/24 11:00: WBC 8.0, RBC 4.38 L, Hgb 14.7, Hct 42.1, MCV 96.1 H, MCH 33.6 H, MCHC 34.9, RDW Std Deviation 47.5 H, RDW Coeff of Hubert 13.3, Plt Count 212, MPV 9.5, Sodium 137, Potassium 3.9, Chloride 106, Carbon Dioxide 26.0, Anion Gap 5, BUN 12, Creatinine 0.98, Estim Creat Clear Calc 109.42, Est GFR (MDRD) Af Amer 102, Est GFR (MDRD) Non-Af 84, BUN/Creatinine Ratio 12.2, Glucose 137 H, Calcium 8.6 Physical Exam Narrative Physical Examination: General: Awake, alert, oriented x 3 and cooperative, seated upright in the MS bed, notes currently feeling improved as did have diaphoresis and some nausea the evening prior Skin: Still mildly flushed and does have some continuous mild erythema with stippling over the cheeks and bridge of the nose and the forehead which she reports is uncomfortable and mildly itching and states that has also flaked, normal turgor, no icterus, no cyanosis. HEENT: AT/NC, EOMI, PERRLA, MMM. Lungs: CTA bilaterally, moderate effort, mild decrease BL bases, no rales, ronchi or wheezing. Heart: Regular rate with regular rhythm; no gallop, rub audible. Abdomen: Soft, obese, NTTP, ND. Extremities: No cyanosis, clubbing, or edema. Neurological: Patient awake, alert, oriented as noted, cognitive function intact; pupils equally reactive to light and accommodation, cranial nerves II- XII grossly normal, moving all 4 extremities, no focal deficits, strength pres erved, no overt withdrawal symptoms. Psychiatric: Affect appears fatigued otherwise normal, no acute evidence of depressive or anxiety feelings but does have underlying history. Assessment & Plan Assessment/Plan (1) Admitted to alcohol detoxification center: PLAN: Plan The patient is a 53 y/o M w/ PMHx: Obesity, HTN, Anxiety and Depression, Fibromyalgia, Gout, GERD, Allergic rhinitis who presents to the [facility] ED on 02/06/24 with history of significant alcohol abuse since the age of 13 occasionally attempting to wean himself off but never successfully with significant high beer intake usually before or after work but never while he is working and often to get himself to sleep frequently drinking until he finally passes out with several recent emotional events over the last week involving his significant other prompting him to present to the ED to request detoxification. #1. EtOH abuse with requested detoxification with impending EtOH Withdrawal: Admitted to [facility], routine labs obtained in the ED. Given interest in sobriety, initiated and continued on protocol with taper course of Phenobarbital, as needed gabapentin, Catapres, Bentyl, Vistaril, IV fluids, IV antiemetics, Tylenol as needed for pain. Will consult Case management for assistance for transition to next level of rehabilitation care. Mag, phos obtained with normal levels. Maintain on CIWA protocol concurrently. #2. Mild Facial Rash: During admission reported worsening facial rash across both cheeks and the bridge of his nose with recent start of Wellbutrin and also noted to be on allopurinol for gout but no clear timeline which itself can be associated with sun exposure rash. Temporarily holding and will continue to monitor and given symptomatic also will administer Solu-Medrol x 2 doses as well as Benadryl x 2 doses and reassess for potential transition to oral prednisone if appropriate. #3. Hypertension: Continue home regimen including amlodipine, clonidine, losartan, hydrochlorothiazide, PRN hydralazine. #4. Anxiety and depression: We will continue patient home nortriptyline, BuSpar, Wellbutrin home regimen. #5. Gout: Given potential relation with rash we will temporarily hold home allopurinol regimen. #6. Obesity: Weight loss and lifestyle changes encouraged. #7. Allergic rhinitis: We will continue patient home cetirizine regimen. #8. GERD: We will continue patient on PPI. #9. DVT prophylaxis: Low risk, encourage ambulation. Charges/Coding Visit Charges Inpatient E&M: 43632 Init Hosp L2
[2024-02-08] MEDS: Losartan Potassium 100 MG Tablet PO (07:46)
[2024-02-08] MEDS: Folic Acid 1 MG Tablet PO (07:47)
[2024-02-08] MEDS: Pantoprazole Sodium 40 MG Tablet PO (07:47)
[2024-02-08] MEDS: Multivitamins,Ther W-Minerals Tablet 1 TABLET PO (07:47)
[2024-02-08] MEDS: Loratadine 10 MG Tablet PO (07:47)
[2024-02-08] MEDS: Thiamine Hydrochloride 100 MG Tablet PO (07:47)
[2024-02-08] MEDS: buPROPion (XL) 150 MG TABLET.XL PO (07:48)
[2024-02-08] MEDS: busPIRone 5 MG Tablet 7.5 MG PO ×2 (07:49→22:00)
[2024-02-08] MEDS: Enoxaparin 40 MG/0.4 ML Syringe SC (07:53)
[2024-02-08] MEDS: amLODIPine 5 MG Tablet PO (07:53)
[2024-02-08] MEDS: Acetaminophen 325 MG Tablet 650 MG PO (07:53)
--- NOTE | 2024-02-08 09:07 | NURSING ---
spoke with son bertrand. son willing to rent storage unit for pt to place belongings in, and rent hotel for 2 week for pt to get on feet. bertrand stated that he is unwilling to have pt return to his home at this time. explained to bertrand that nursing would pass this info on to nursing home social worker and addiction mediation worker today.
[2024-02-08] MEDS: DiphenhydrAMINE 50 MG/ML Syringe 25 MG IV ×2 (10:02→17:07)
[2024-02-08] MEDS: 0.9% Saline Lock 10 ML Syringe IV ×2 (10:02→17:07)
--- NOTE | 2024-02-08 15:11 | ADDICTION ---
This selling underwriter met with PT to conduct ASAM, MSE, and AUDIT assessments and to plan for d/c. PT was A+Ox4 and participated actively. All assessments completed and placed in PT's chart. PT plans to f/u with follow-up treatment services, however would like to make a decision regarding his employment prior to making any commitments. This worker offered resources based on his identified wants and needs, including local treatment facilities and 12 step meetings. PT did not indicate a need for transportation post d/c from [facility].
[2024-02-08] MEDS: hydrOXYzine PAM 25 MG Capsule 50 MG PO (19:55)
[2024-02-08] MEDS: traZODone 100 MG Tablet PO (22:03)
[2024-02-09] VITALS (7 sets, daily range): BP systolic 125–144; BP diastolic 80–88; PULSE 58–90; RESP 16–20; TEMP 36.5–37.1; O2SAT 96–98
[2024-02-09] MEDS: Phenobarbital 32.4 MG Tablet PO ×5 (02:15→23:21)
[2024-02-09] MEDS: Nystatin Powder 15gm Bottle 1 APPLIC TOPICAL (05:21)
--- NOTE | 2024-02-09 07:09 | PCM.PN.HOSP ---
Reason for Visit Reason for Visit: Diagnoses Alcohol abuse, uncomplicated (02/06/24) Subjective Subjective Patient overnight with increased diaphoresis and general malaise and fatigue which she notes is normal as he usually has worse symptoms at least on the third day of withdrawal but he feels much better this morning. He does state he feels as though his rash is better on his face and it is less uncomfortable following interventions today prior. He is amenable to a short course of steroids. Patient denies fevers, chills, nausea, emesis, abdominal pain, chest pain or dyspnea. Objective Data Objective Data Vital Signs: Vital Signs Temp Pulse Resp BP Pulse Ox O2 Del Method 97.7 F L 61 16 133/83 H 97 Room Air 02/09/24 02:14 02/09/24 02:14 02/09/24 02:14 02/09/24 02:14 02/09/24 02:14 02/09/24 02:14 Oxygen Delivery Method Room Air Weight: 236 lb 6.4 oz Body Mass Index (BMI) 31.1 Intake & Output: Intake and Output for Last 24 Hours 02/07/24 02/08/24 02/09/24 23:59 23:59 23:59 Intake Total 3912.5 / 3912.5 2400 / 3000 600 / 600 Balance 3912.5 / 3912.5 2400 / 3000 600 / 600 Lab / Micro Data 02/07/24 11:00 02/07/24 11:00 Physical Exam Narrative Physical Examination: General: Awake, alert, oriented x 3 and cooperative, seated upright in the MS bed, eating breakfast, notes feeling improved, states rash is also improved Skin: Mild erythematous facial rash seems to be less flushed, less stippled, no peeling, less itchy he notes otherwise skin with normal turgor, no icterus, no cyanosis. HEENT: AT/NC, EOMI, PERRLA, MMM. Lungs: CTA bilaterally, moderate effort, mild decrease BL bases, no rales, ronchi or wheezing. Heart: Regular rate with regular rhythm; no gallop, rub audible. Abdomen: Soft, obese, NTTP, ND. Extremities: No cyanosis, clubbing, or edema. Neurological: Patient awake, alert, oriented as noted, cognitive function intact; pupils equally reactive to light and accommodation, cranial nerves II-XII grossly normal, moving all 4 extremities, no focal deficits, strength preserved, no currently witnessed withdrawal symptoms. Psychiatric: Affect appears normal, no acute evidence of depressive or anxiety feelings but does have underlying history. Assessment & Plan Assessment/Plan (1) Admitted to alcohol detoxification center: PLAN: Plan The patient is a 53 y/o M w/ PMHx: Obesity, HTN, Anxiety and Depression, Fibromyalgia, Gout, GERD, Allergic rhinitis who presents to the [facility] ED on 02/06/24 with history of significant alcohol abuse since the age of 13 occasionally attempting to wean himself off but never successfully with significant high beer intake usually before or after work but never while he is working and often to get himself to sleep frequently drinking until he finally passes out with several recent emotional events over the last week involving his significant other prompting him to present to the ED to request detoxification. #1. EtOH abuse with requested detoxification with impending EtOH Withdrawal: Admitted to [facility], routine labs obtained in the ED. Given interest in sobriety, initiated and continued on protocol with taper course of Phenobarbital, as needed gabapentin, Catapres, Bentyl, Vistaril, IV fluids, IV antiemetics, Tylenol as needed for pain. Will consult Case management for assistance for transition to next level of rehabilitation care. Mag, phos obtained with normal levels. Maintain on CIWA protocol concurrently. Planned discharge once phenobarbital taper complete and as of now appears last dose will be early AM 02/11/2024. Pending reassessment 02/10/2024 and discharge plan may be able to discharge later in the day. #2. Mild Facial Rash: During admission reported worsening facial rash across both cheeks and the bridge of his nose with recent start of Wellbutrin and also noted to be on allopurinol for gout but no clear timeline which itself can be associated with sun exposure rash. Temporarily holding, administered Solu-Medrol x 2 doses as well as Benadryl x 2 doses with improvement thus will transition at this time to a short course of oral prednisone. #3. Hypertension: Continue home regimen including amlodipine, clonidine, losartan, hydrochlorothiazide, PRN hydralazine. #4. Anxiety and depression: We will continue patient home nortriptyline, BuSpar, Wellbutrin home regimen. #5. Gout: Given potential relation with rash we will temporarily hold home allopurinol regimen. #6. Obesity: Weight loss and lifestyle changes encouraged. #7. Allergic rhinitis: We will continue patient home cetirizine regimen. #8. GERD: We will continue patient on PPI. #9. DVT prophylaxis: Low risk, encourage ambulation. Charges/Coding Visit Charges Inpatient E&M: 92133 Subs Hosp L2
[2024-02-09] MEDS: busPIRone 5 MG Tablet 7.5 MG PO ×2 (08:09→23:22)
[2024-02-09] MEDS: Pantoprazole Sodium 40 MG Tablet PO (08:10)
[2024-02-09] MEDS: Multivitamins,Ther W-Minerals Tablet 1 TABLET PO (08:10)
[2024-02-09] MEDS: Enoxaparin 40 MG/0.4 ML Syringe SC (08:10)
[2024-02-09] MEDS: Loratadine 10 MG Tablet PO (08:10)
[2024-02-09] MEDS: Losartan Potassium 100 MG Tablet PO (08:10)
[2024-02-09] MEDS: Thiamine Hydrochloride 100 MG Tablet PO (08:11)
[2024-02-09] MEDS: amLODIPine 5 MG Tablet PO (08:11)
[2024-02-09] MEDS: Folic Acid 1 MG Tablet PO (08:11)
[2024-02-09] MEDS: predniSONE 20 MG Tablet 40 MG PO (09:09)
[2024-02-09] MEDS: traZODone 100 MG Tablet PO (23:21)
[2024-02-10 03:28] VITALS: BP 119/77; PULSE 53; RESP 16; TEMP 36.5; O2SAT 98
[2024-02-10] MEDS: Phenobarbital 32.4 MG Tablet PO (05:41)
[2024-02-10] MEDS: Nystatin Powder 15gm Bottle 1 APPLIC TOPICAL (05:42)
[2024-02-10 07:15] VITALS: O2SAT 98
[2024-02-10 09:00] VITALS: BP 133/87; PULSE 72; RESP 18; TEMP 36.7; O2SAT 98
--- NOTE | 2024-02-10 09:37 | DS.PCM_ITS ---
Providers Date of Admission: 02/06/24 Date of Discharge: 02/10/24 Primary Care Physician: ENOCH Suh Reason For Visit: ETOH DETOX Diagnosis Discharge Diagnosis (1) Admitted to alcohol detoxification center: Status: Acute Medications at Discharge Home Medications allopurinol 300 mg tablet 300 mg PO DAILY 12/09/23 bupropion HCl 150 mg 24 hr tablet, extended release 150 mg PO DAILY 12/09/23 cetirizine 10 mg tablet 10 mg PO DAILY 12/09/23 dicyclomine 10 mg capsule 10 mg PO Q8H PRN PRN stomach cramps 12/09/23 hydroxyzine pamoate 25 mg capsule 25 mg PO Q4H PRN anxiety 12/09/23 omeprazole 40 mg capsule,delayed release 40 mg PO DAILY 12/09/23 cholecalciferol (vitamin D3) 25 mcg (1,000 unit) tablet (Vitamin D3) 25 mcg PO DAILY SUPPLEMENT 12/10/23 colchicine 0.6 mg tablet 1.2 mg PO DAILY PRN GOUT 12/10/23 multivitamin with folic acid 400 mcg tablet (Tab-A-Robert) 1 tab PO DAILY SUPPLEMENT 12/10/23 nortriptyline 25 mg capsule 25 mg PO QHS DEPRESSION/INSOMNIA 12/10/23 amlodipine 5 mg tablet 5 mg PO DAILY 02/06/24 aripiprazole 2 mg tablet 2 mg PO DAILY 02/06/24 buspirone 7.5 mg tablet 7.5 mg PO BID anxiety 02/06/24 cholecalciferol (vitamin D3) 25 mcg (1,000 unit) capsule 50 mcg PO DAILY 02/06/24 folic acid 1 mg tablet 1 mg PO DAILY 02/06/24 ibuprofen 600 mg tablet 600 mg PO Q6H PRN PRN pain 02/06/24 losartan 100 mg-hydrochlorothiazide 25 mg tablet 1 tab PO DAILY 02/06/24 pantoprazole 40 mg tablet,delayed release 40 mg PO DAILY 02/06/24 thiamine HCl (vitamin B1) 100 mg tablet 100 mg PO DAILY 02/06/24 gabapentin 300 mg capsule 300 mg PO Q8H PRN PRN moderate to severe anxiety #21 caps 02/10/24 methylprednisolone 4 mg tablets in a dose pack (Medrol (Jeancarlos)) 4 mg PO DAILY #21 tabs 02/10/24 trazodone 100 mg tablet 100 mg PO QHS PRN PRN Insomnia #7 tabs 02/10/24 Hospital Course Summary of Care Provided Minutes Spent on Discharge: 37 Hospital Course: Mr. Carpio is a 53-year-old white male who presented to emergency department at [facility] on 02/06/2024 requesting alcohol detoxification due to alcohol abuse. Patient reports that he has had significant history of alcohol abuse since he was 13 years old. He is occasionally attempted to wean himself but never been successful. He reported significantly high beer intake usually before or after work but never while he is working and he uses it often to get himself to sleep. He often drinks until he passes out and has suffered from several recent emotional events over the past week prior to presentation in volving his significant other prompting him to present to the emergency department for detox. His last alcohol intake prior to admission was just prior to arrival to the emergency department. He denied any withdrawal symptoms at the sign of presentation but did note from previous attempts he usually has tremors and significant diaphoresis. Vital signs on presentation were unremarkable other than tachycardia with heart rate of 130. His CBC was unremarkable. Chemistry panel was overtly unremarkable and his ethyl alcohol level was 250. He was placed on a phenobarbital taper along with supportive medication for symptoms and thiamine and folate. [facility] protocol was utilized to assess withdrawal symptoms. He was maintained on his home medications for his blood pressure. He did develop a mild facial rash while his hospitalization across his cheeks and the bridge of his nose and etiology was overtly unclear however he did report recently he started Wellbutrin and allopurinol. These wer e held and he was given Solu-Medrol x 2 doses as well as Benadryl and we did transition him to a Medrol Dosepak at the time of discharge. He did quite well with his detox having no significant symptoms other than some diaphoresis, general malaise and fatigue however on the a.m. of 02/10/2024 he was feeling much better overall and desired discharge. 180 did meet with him however he wished to get his employment situation organized prior to committing to any outpatient treatment protocol but indicated once that was done he would make an appointment to be seen. He does have significant issues with anxiety and depression and needs close follow-up with his PCP this will be arranged by him after discharge. I did write prescription for gabapentin as needed for 1 week as well as trazodone nightly as needed. We will hold his home Lyrica during this time. I also have recommended that he discontinue his diazepam as this is also addictive I would not use this for sleep. He was able to be discharged home in stable condition on 02/10/2024. Discharge diagnoses: Alcohol abuse Alcohol detoxification Rash-improving Hypertension Gout Obesity Allergic rhinitis GERD Depression/anxiety Physical Exam Const alert, oriented x3, no apparent distress, no limitations, healthy appearing and well nourished; Negative for average body habitus Constitutional Narrative: Obese, middle-aged, white male, sitting up in the edge of the bed, appears comfortable and nontoxic, eating breakfast, no signs of withdrawal or tremor General Appearance: cooperative, comfortable, well kempt and well developed Orientation / Consciousness: awake, oriented to person, oriented to place and oriented to time Exam Limitations: no limitations Nutritional Appearance: obese HEENT normocephalic, head/scalp atraumatic, hearing grossly normal bilaterally and moist oral mucous membranes HEENT Narrative: Mallampati 3, no thrush Resp normal respiratory effort, no retractions, no use of accessory muscles and clear to auscultation bilaterally Auscultation: Negative for rales, rhonchi or wheezes Cardio regular rate, regular rhythm, S1 normal heart sound, S2 normal heart sound, no murmurs, no rub, no gallops and no clicks GI normal to inspection, nondistended, normoactive bowel sounds, soft to palpation and non-tender Extremity no clubbing, cyanosis or edema Skin No no rashes or lesions noted, no wounds, skin turgor normal and no jaundice Skin Narrative: Mildly erythematous across his face however he states this is markedly improved Neuro oriented x3, CN's II-XII intact bilaterally, moves all extremities and no focal motor deficits Speech: speech normal Psych affect normal Psych Narrative: Eye contact is good, patient interacts appropriately Weight / BMI Weight Weight: 107.229 kg Body Mass Index (BMI) 31.1 ABG / Lab / Microbiology Data 02/07/24 11:00 02/07/24 11:00 D/C Instructions Discharge Diet: Low fat / Low cholesterol Discharge Activity: Return to Normal Activity Return to work on: 02/11/24 (Patient was hospitalized from 02/06/2024 through 02/10/2024) Meaningful Use Info Meaningful Use Meaningful Use Diagnoses (Choose all that apply): None applicable Ischemic Stroke Statin Dosing Therapy Reference: STATIN DOSE THERAPY REFERENCE: * Patients > 75 years receive moderate or high dose statin therapy. * Patients 75 years or YOUNGER should receive HIGH intensity statin dose unless contraindicated. You will be required to document reason for non-treatment if statin daily dose does not meet guidelines. HIGH DOSE STATIN THERAPY DAILY Atorvastatin > than or = to 40 mg Rosuvastatin > than or = to 20 mg Amlodipine + Atorvastatin > than or = to 2.5/40 mg Ezetimibe + Simvastatin 10/80 mg Simvastatin 80mg Discharge Plan Admission Admit Date/Time: 02/06/24 15:39 Primary Reason for Your Visit: Alcohol detoxification Attending Provider: Maira Harrell Primary Care Provider: Shasha Newman NP Consulting Providers: Jeanette Smith; Noel Estrada Instructions Forms: Work Excuse Discharge Orders/Prescriptions Prescriptions: New gabapentin 300 mg Capsule 300 mg PO Q8H PRN PRN (Reason: moderate to severe anxiety) Qty: 21 0RF trazodone 100 mg Tablet 100 mg PO QHS PRN PRN (Reason: Insomnia) Qty: 7 0RF methylprednisolone [Medrol (Jeancarlos)] 4 mg tablets,dose pack 4 mg PO DAILY Qty: 21 0RF Continued bupropion HCl 150 mg tablet extended release 24 hr 150 mg PO DAILY Patient Comments: TAKE 1 TABLET BY MOUTH DAILY omeprazole 40 mg capsule,delayed release(DR/EC) 40 mg PO DAILY Patient Comments: TAKE 1 CAPSULE BY MOUTH DAILY for GERD allopurinol 300 mg tablet 300 mg PO DAILY Patient Comments: Take 1 tablet by mouth once daily. dicyclomine 10 mg capsule 10 mg PO Q8H PRN PRN (Reason: stomach cramps) Patient Comments: Take 1 capsule by mouth every 8 hours as needed (abdomial cramps). cetirizine 10 mg tablet 10 mg PO DAILY Patient Comments: Take 1 tablet by mouth once daily. hydroxyzine pamoate 25 mg capsule 25 mg PO Q4H PRN (Reason: anxiety) Patient Comments: TAKE 1 CAPSULE BY MOUTH EVERY 4 HOURS NEEDED FOR ANXIETY cholecalciferol (vitamin D3) [Vitamin D3] 25 mcg (1,000 unit) tablet 25 mcg PO DAILY Patient Comments: Take 2 tablets by mouth once daily. colchicine 0.6 mg tablet 1.2 mg PO DAILY PRN Patient Comments: Take 2 tablets upon flare up and 1 tablet one hour later. multivitamin with folic acid [Tab-A-Robert] 400 mcg tablet 1 tab PO DAILY Patient Comments: Take 1 tablet by mouth daily with breakfast. nortriptyline 25 mg capsule 25 mg PO QHS Patient Comments: TAKE 1 CAPSULE BY MOUTH EVERY NIGHT AT BEDTIME FOR INSOMNIA and pain amlodipine 5 mg tablet 5 mg PO DAILY buspirone 7.5 mg tablet 7.5 mg PO BID cholecalciferol (vitamin D3) 25 mcg (1,000 unit) capsule 50 mcg PO DAILY aripiprazole 2 mg tablet 2 mg PO DAILY thiamine HCl (vitamin B1) 100 mg tablet 100 mg PO DAILY losartan-hydrochlorothiazide 100-25 mg tablet 1 tab PO DAILY pantoprazole 40 mg tablet,delayed release (DR/EC) 40 mg PO DAILY folic acid 1 mg tablet 1 mg PO DAILY ibuprofen 600 mg tablet 600 mg PO Q6H PRN PRN (Reason: pain) Discontinued clonidine HCl 0.1 mg tablet 0.1 mg PO DAILY diazepam 10 mg tablet 10 mg PO QHS pregabalin 75 mg capsule 75 mg PO BID Referrals / Follow Up: Shasha Newman NP, HEALTH AND SAFETY ADVISOR-C [Primary Care Provider] - In 1 Week Disposition Disposition (needs filled in before D/C Order can be placed): Home, Self Care Charges/Coding Visit Charges Inpatient E&M: 87834 Disch Hosp >30min
[2024-02-10 09:43] VITALS: BP 133/87; PULSE 72; RESP 18; TEMP 36.7; O2SAT 98
[2024-02-10] MEDS: Multivitamins,Ther W-Minerals Tablet 1 TABLET PO (09:49)
[2024-02-10] MEDS: amLODIPine 5 MG Tablet PO (09:50)
[2024-02-10] MEDS: Pantoprazole Sodium 40 MG Tablet PO (09:50)
[2024-02-10] MEDS: Losartan Potassium 100 MG Tablet PO (09:50)
[2024-02-10] MEDS: Loratadine 10 MG Tablet PO (09:50)
[2024-02-10] MEDS: busPIRone 5 MG Tablet 7.5 MG PO (09:51)
[2024-02-10] MEDS: Thiamine Hydrochloride 100 MG Tablet PO (09:51)
[2024-02-10] MEDS: Folic Acid 1 MG Tablet PO (09:52)
[2024-02-10] MEDS: predniSONE 20 MG Tablet 40 MG PO (09:52)
[2024-02-10] MEDS: Enoxaparin 40 MG/0.4 ML Syringe SC (09:52)
[2024-02-10] MEDS: buPROPion (XL) 150 MG TABLET.XL PO (09:53)
--- NOTE | 2024-02-10 10:47 | PHA.DC_ITS ---
Pharmacy [facility] has performed discharge medication reconciliation and counseling for this patient. 1. GABAPENTIN 300MG PO Q8H PRN MODERATE TO SEVERE ANXIETY 2. MEDROL DOSE PACK 3. TRAZODONE 100MG PO QHS PRN INSOMNIA The patient's discharge medication list was reviewed for discrepancies and discrepancies were resolved. The patient was counseled on the following discharge medications and changes in medications for homegoing were reviewed. The Reason for Use, instructions for use, and potential side effects were reviewed for all new medications. The patient's questions regarding all of their medications were answered. The patient was able to verbally demonstrate an understanding of their discharge medications. Medications at Discharge Home Medications allopurinol 300 mg tablet 300 mg PO DAILY 12/09/23 bupropion HCl 150 mg 24 hr tablet, extended release 150 mg PO DAILY 12/09/23 cetirizine 10 mg tablet 10 mg PO DAILY 12/09/23 dicyclomine 10 mg capsule 10 mg PO Q8H PRN PRN stomach cramps 12/09/23 hydroxyzine pamoate 25 mg capsule 25 mg PO Q4H PRN anxiety 12/09/23 omeprazole 40 mg capsule,delayed release 40 mg PO DAILY 12/09/23 cholecalciferol (vitamin D3) 25 mcg (1,000 unit) tablet (Vitamin D3) 25 mcg PO DAILY SUPPLEMENT 12/10/23 colchicine 0.6 mg tablet 1.2 mg PO DAILY PRN GOUT 12/10/23 multivitamin with folic acid 400 mcg tablet (Tab-A-Robert) 1 tab PO DAILY SUPPLEMENT 12/10/23 nortriptyline 25 mg capsule 25 mg PO QHS DEPRESSION/INSOMNIA 12/10/23 amlodipine 5 mg tablet 5 mg PO DAILY 02/06/24 aripiprazole 2 mg tablet 2 mg PO DAILY 02/06/24 buspirone 7.5 mg tablet 7.5 mg PO BID anxiety 02/06/24 cholecalciferol (vitamin D3) 25 mcg (1,000 unit) capsule 50 mcg PO DAILY 02/06/24 folic acid 1 mg tablet 1 mg PO DAILY 02/06/24 ibuprofen 600 mg tablet 600 mg PO Q6H PRN PRN pain 02/06/24 losartan 100 mg-hydrochlorothiazide 25 mg tablet 1 tab PO DAILY 02/06/24 pantoprazole 40 mg tablet,delayed release 40 mg PO DAILY 02/06/24 thiamine HCl (vitamin B1) 100 mg tablet 100 mg PO DAILY 02/06/24 gabapentin 300 mg capsule 300 mg PO Q8H PRN PRN moderate to severe anxiety #21 caps 02/10/24 methylprednisolone 4 mg tablets in a dose pack (Medrol (Jeancarlos)) 4 mg PO DAILY #21 tabs 02/10/24 trazodone 100 mg tablet 100 mg PO QHS PRN PRN Insomnia #7 tabs 02/10/24
== END 2024-02-10 13:00 | disposition home or self-care (01) | DRG 775 ==
LOC: ED 14:46 → MS3 02-07 07:08
PROVIDERS: Hospitalist; Admitting Provider Family Medicine; Emergency Provider Emergency Medicine; PCP Nurse Practitioner Family; Visit Provider Internal Medicine
DX: F10.229 Alcohol dependence with intoxication, unspecified (principal); F10.139 Alcohol abuse with withdrawal, unspecified; E66.9 Obesity, unspecified; F32.A Depression, unspecified; I10 Essential (primary) hypertension; F41.9 Anxiety disorder, unspecified; M10.9 Gout, unspecified; J30.9 Allergic rhinitis, unspecified; R21 Rash and other nonspecific skin eruption; Z79.899 Other long term (current) drug therapy; Z68.32 Body mass index [BMI] 32.0-32.9, adult; Y90.8 Blood alcohol level of 240 mg/100 ml or more; M79.7 Fibromyalgia
CPT/HCPCS: 80048; 80053; 80307; 80320; 83735; 84100; 85025; 85027; 85610; 96361; 96372; 96374; 96375; 96376; 97802; 99221; 99284; J7120; A4216; G0378; G0480

== ENCOUNTER 2024-02-11 00:45 | Observation (INO) | payer MEDICAID, SELFPAY ==
[2024-02-11] VITALS (8 sets, daily range): BP systolic 125–177; BP diastolic 76–102; PULSE 69–101; RESP 16–18; TEMP 36.2–37.1; O2SAT 97–100; BMI 33.4; BMI 32.8
--- NOTE | 2024-02-11 01:03 | EX.ED.DYSGE1 ---
HPI History of Present Illness Chief Complaint: ETOH Intox Informant: patient Narrative Narrative: Patient is a 53-year-old male with past medical history of hypertension fibromyalgia and alcohol abuse. He was recently in the hospital from February 05 until the for alcohol detoxification and discharged home. He states once he returned home he fell back into his bad habits and had 5 or 6 20 ounce beers today and his last drink was approximately 5 or 6 PM. He states a few hours later he began to feel out of it and decided that he should come back to the hospital for detox once more and this time seek placement at an extended rehab facility as she reports he has no support system at home. He denies any type of illicit drug use since returning home. He states that the previous bouts of quitting drinking he has had symptoms such as shaking and fatigue but denies any true DTs or withdrawal. [facility] Medical History Alcohol abuse Allergic rhinitis Anxiety and depression Fibromyalgia GERD (gastroesophageal reflux disease) Gout Hypertension Obesity Home Medications allopurinol 300 mg tablet 300 mg PO DAILY 12/09/23 [History Last Taken Unknown] bupropion HCl 150 mg 24 hr tablet, extended release 150 mg PO DAILY 12/09/23 [History Last Taken Unknown] cetirizine 10 mg tablet 10 mg PO DAILY 12/09/23 [History Last Taken Unknown] dicyclomine 10 mg capsule 10 mg PO Q8H PRN PRN stomach cramps 12/09/23 [History Last Taken Unknown] hydroxyzine pamoate 25 mg capsule 25 mg PO Q4H PRN anxiety 12/09/23 [History Last Taken Unknown] omeprazole 40 mg capsule,delayed release 40 mg PO DAILY 12/09/23 [History Last Taken Unknown] cholecalciferol (vitamin D3) 25 mcg (1,000 unit) tablet (Vitamin D3) 25 mcg PO DAILY SUPPLEMENT 12/10/23 [History Last Taken Unknown] colchicine 0.6 mg tablet 1.2 mg PO DAILY PRN GOUT 12/10/23 [History Last Taken Unknown] multivitamin with folic acid 400 mcg tablet (Tab-A-Robert) 1 tab PO DAILY SUPPLEMENT 12/10/23 [History Last Taken Unknown] nortriptyline 25 mg capsule 25 mg PO QHS DEPRESSION/INSOMNIA 12/10/23 [History Last Taken Unknown] amlodipine 5 mg tablet 5 mg PO DAILY 02/06/24 [History Last Taken Unknown] aripiprazole 2 mg tablet 2 mg PO DAILY 02/06/24 [History Last Taken Unknown] buspirone 7.5 mg tablet 7.5 mg PO BID anxiety 02/06/24 [History Last Taken Unknown] cholecalciferol (vitamin D3) 25 mcg (1,000 unit) capsule 50 mcg PO DAILY 02/06/24 [History Last Taken Unknown] folic acid 1 mg tablet 1 mg PO DAILY 02/06/24 [History Last Taken Unknown] ibuprofen 600 mg tablet 600 mg PO Q6H PRN PRN pain 02/06/24 [History Last Taken Unknown] losartan 100 mg-hydrochlorothiazide 25 mg tablet 1 tab PO DAILY 02/06/24 [History Last Taken Unknown] pantoprazole 40 mg tablet,delayed release 40 mg PO DAILY 02/06/24 [History Last Taken Unknown] thiamine HCl (vitamin B1) 100 mg tablet 100 mg PO DAILY 02/06/24 [History Last Taken Unknown] gabapentin 300 mg capsule 300 mg PO Q8H PRN PRN moderate to severe anxiety #21 caps 02/10/24 [Rx Last Taken Unknown] methylprednisolone 4 mg tablets in a dose pack (Medrol (Jeancarlos)) 4 mg PO DAILY #21 tabs 02/10/24 [Rx Last Taken Unknown] trazodone 100 mg tablet 100 mg PO QHS PRN PRN Insomnia #7 tabs 02/10/24 [Rx Last Taken Unknown] Allergy/AdvReac Type Severity Reaction Status Date / Time Penicillins Allergy Angioedema Verified 02/11/24 00:51 Family History Mother Leukemia Father No problems noted. Surgical History History of dental surgery Social History household members: children Smoking Status: Never smoker alcohol intake: current alcohol intake frequency: 3 or more drinks per day details: 5-10 Tall boys daily, usually high % beer. ROS ROS ED Constitutional Constitutional ED: Denies chills or fever(s) Eyes Eyes: Denies change in vision ENT ENT ED: Denies sore throat Cardiovascular Cardiovascular: Reports racing heartbeat; Denies chest pain or palpitations Respiratory/Chest Respiratory/Chest: Denies cough or dyspnea Gastrointestinal Gastrointestinal: Reports nausea; Denies abdominal pain, diarrhea or vomiting Genitourinary Genitourinary ED: Denies dysuria Musculoskeletal Musculoskeletal: Denies myalgias Integumentary Denies rash Neurologic Neurologic: Denies headache(s) Psychiatric Psychiatric: Denies suicidal ideation or suicidal thoughts Hematologic/Lymphatic Hematologic/Lymphatic: Denies easy bleeding or easy bruising EXAM Physical Exam Const Vital Signs: 02/11/24 00:46 02/11/24 01:33 Temperature 98 F 98.7 F Temperature Source Temporal Pulse Rate 84 99 Respiratory Rate 16 18 Blood Pressure 145/102 H 135/90 H Blood Pressure Mean 116 105 Pulse Ox 97 100 Oxygen Delivery Method Room Air Positive well nourished and well developed General Appearance ED: well developed; Negative for pallor HEENT HEENT Narrative: Normocephalic atraumatic Eyes PERRL and EOMs intact bilaterally General Eye ED: Negative for scleral icterus Neck supple Neck Narrative: No nuchal rigidity or meningeal signs noted Resp normal respiratory effort and clear to auscultation bilaterally Cardio regular rhythm Rate: tachycardic and other Other Details: Tachycardic rate with regular rhythm GI non-tender, non-distended and no masses GI Narrative: Abdomen is soft nontender nondistended with hyperactive bowel sounds No voluntary guarding or rigidity or pulsatile mass Auscultation: hyperactive bowel sounds Palpation: soft Extremity normal to inspection Extremity Narrative: No asymmetric edema no pitting edema negative Homans' sign bilaterally Neuro oriented x3, CN's II-XII intact bilaterally and no sensory deficits noted Neuro Narrative: Cranial nerves II through XII are grossly intact without focal neurologic deficit NIH stroke scale score of 0 GCS of 15 Sensorium / Orientation: alert Motor Exam: strength 5/5 throughout Psych Psych Narrative: Patient has a flat affect without homicidal or suicidal ideation Skin no rashes or lesions noted Skin Narrative: There is mild diaphoresis present General Skin Exam: Negative for jaundice or pallor MDM MDM MDM Narrative Medical decision making narrative: Patient arrived to the ER hypertensive but otherwise with stable vitals. He had just left the hospital not even 24 hours ago and admitted to drinking once returning home. He is tachycardic and hypertensive and has mild diaphoresis and also reports feeling out of it yet he is awake alert and oriented x 4 with GCS of 15. These physical exam findings indicate mild withdrawal symptoms and therefore he was given 1 L of fluid and 2 mg of IV Ativan. As he just left the detox program the case was discussed with the nursing telephone clerks supervisor. She states that with alcohol there is no timeframe or limit for him to return to the program. Therefore at this time as patient is showing mild withdrawal symptoms and does express desire for detoxification and placement in long-term rehab I discussed the case with the medicine on-call/hospitalist and he does agree to readmit the patient at this time for further care History & Record Review Discussion w/independent historian: Patient Lab Data Labs: Laboratory Results - last 24 hr 02/11/24 01:31 WBC 10.4 RBC 4.60 Hgb 15.2 Hct 45.0 MCV 97.8 H MCH 33.0 H MCHC 33.8 RDW Std Deviation 49.7 H RDW Coeff of Hubert 13.9 Plt Count 243 MPV 9.8 Immature Gran % (Auto) 1.100 H Neut % (Auto) 77.2 H Lymph % (Auto) 14.4 L [place] % (Auto) 6.6 Eos % (Auto) 0.1 Baso % (Auto) 0.6 Absolute Neuts (auto) 8.1 H Absolute Lymphs (auto) 1.50 Nucleated RBC % 0 Sodium 140 Potassium 4.1 Chloride 106 Carbon Dioxide 26.0 Anion Gap 8 BUN 13 Creatinine 0.88 Estim Creat Clear Calc 129.59 Est GFR (MDRD) Af Amer 115 Est GFR (MDRD) Non-Af 95 BUN/Creatinine Ratio 14.7 Glucose 101 Calcium 8.9 Magnesium 1.9 Total Bilirubin 0.20 Direct Bilirubin 0.10 AST 50 H ALT 63 H Alkaline Phosphatase 64 Total Protein 7.4 Albumin 3.5 Globulin 3.9 Ur Drug Screen Comment Ethyl Alcohol 31.0 Management Discussion w/another healthcare provider: Hospitalist Discharge Plan Dx/Rx/DC Orders Clinical Impression: Admitted to alcohol detoxification center, Alcohol abuse, Hypertension, Fibromyalgia Disposition Disposition: Acute Care Hospital [facility] Discharge Date/Time: 02/11/24 02:17
--- NOTE | 2024-02-11 01:18 | PCM.HP.STD ---
[facility] - General General Date of Admission: 02/11/24 Date of Service: 02/11/24 Chief Complaint: Wants help with alcohol detox again. HPI Narrative ANTONETTE DENIS, is a 53 M with a past medical history of essential hypertension, obesity; with BMI of 33.5 this admission, depression with anxiety, fibromyalgia, gout, allergic rhinitis, GERD and chronic alcohol abuse since age 13 with patient routinely drinking six 12 ounce beers daily with recent admission here from February 06, 2024 to February 10, 2024 for help after he requested alcohol detoxification who re-presents to [facility] ER complaining he wants help with alcohol detoxification again. Mr. Denis reports he was discharged home and then drank at least six 12 ounce tall boy beers with his last alcoholic drink at approximately 6 PM and then he began to have tremors and forgetfulness he suspected to be due to alcohol withdrawal so he decided to come back in for further evaluation and treatment. A review his records show that he was offered to go to an inpatient rehabilitation program but he refused at that time - but now he has apparently changed his mind because he has no support system at home. He denies associated fever, chills, nausea, vomiting, other illicit drug use or history of true delirium tremens but he does admit to tremors and malaise with forgetfulness and he claims this is new and unusual for him. He was then diagnosed with acute alcohol intoxication in the setting of chronic recalcitrant alcohol abuse resulting in serious readmission and he was then admitted to the general medical floor for ongoing care for status expected to be greater than 48 hours. [facility] Medical History Alcohol abuse Allergic rhinitis Anxiety and depression Fibromyalgia GERD (gastroesophageal reflux disease) Gout Hypertension Obesity Home Medications allopurinol 300 mg tablet 300 mg PO DAILY 12/09/23 [History Last Taken Unknown] bupropion HCl 150 mg 24 hr tablet, extended release 150 mg PO DAILY 12/09/23 [History Last Taken Unknown] cetirizine 10 mg tablet 10 mg PO DAILY 12/09/23 [History Last Taken Unknown] dicyclomine 10 mg capsule 10 mg PO Q8H PRN PRN stomach cramps 12/09/23 [History Last Taken Unknown] hydroxyzine pamoate 25 mg capsule 25 mg PO Q4H PRN anxiety 12/09/23 [History Last Taken Unknown] omeprazole 40 mg capsule,delayed release 40 mg PO DAILY 12/09/23 [History Last Taken Unknown] cholecalciferol (vitamin D3) 25 mcg (1,000 unit) tablet (Vitamin D3) 25 mcg PO DAILY SUPPLEMENT 12/10/23 [History Last Taken Unknown] colchicine 0.6 mg tablet 1.2 mg PO DAILY PRN GOUT 12/10/23 [History Last Taken Unknown] multivitamin with folic acid 400 mcg tablet (Tab-A-Robert) 1 tab PO DAILY SUPPLEMENT 12/10/23 [History Last Taken Unknown] nortriptyline 25 mg capsule 25 mg PO QHS DEPRESSION/INSOMNIA 12/10/23 [History Last Taken Unknown] amlodipine 5 mg tablet 5 mg PO DAILY 02/06/24 [History Last Taken Unknown] aripiprazole 2 mg tablet 2 mg PO DAILY 02/06/24 [History Last Taken Unknown] buspirone 7.5 mg tablet 7.5 mg PO BID anxiety 02/06/24 [History Last Taken Unknown] cholecalciferol (vitamin D3) 25 mcg (1,000 unit) capsule 50 mcg PO DAILY 02/06/24 [History Last Taken Unknown] folic acid 1 mg tablet 1 mg PO DAILY 02/06/24 [History Last Taken Unknown] ibuprofen 600 mg tablet 600 mg PO Q6H PRN PRN pain 02/06/24 [History Last Taken Unknown] losartan 100 mg-hydrochlorothiazide 25 mg tablet 1 tab PO DAILY 02/06/24 [History Last Taken Unknown] pantoprazole 40 mg tablet,delayed release 40 mg PO DAILY 02/06/24 [History Last Taken Unknown] thiamine HCl (vitamin B1) 100 mg tablet 100 mg PO DAILY 02/06/24 [History Last Taken Unknown] gabapentin 300 mg capsule 300 mg PO Q8H PRN PRN moderate to severe anxiety #21 caps 02/10/24 [Rx Last Taken Unknown] methylprednisolone 4 mg tablets in a dose pack (Medrol (Jeancarlos)) 4 mg PO DAILY #21 tabs 02/10/24 [Rx Last Taken Unknown] trazodone 100 mg tablet 100 mg PO QHS PRN PRN Insomnia #7 tabs 02/10/24 [Rx Last Taken Unknown] Allergy/AdvReac Type Severity Reaction Status Date / Time Penicillins Allergy Angioedema Verified 02/11/24 00:51 Family History Mother Leukemia Father No problems noted. Surgical History History of dental surgery Social History household members: children Smoking Status: Never smoker alcohol intake: current alcohol intake frequency: 3 or more drinks per day details: 5-10 Tall boys daily, usually high % beer. ROS ROS Narrative Review of systems: General: Patient denies fever or chills. HENT: Denies headache, denies stuffy nose, denies sore throat EYES: Denies changes in vision or discharge from eyes. Resp: Denies cough, denies shortness of breath Cardiac: Denies chest pain, heart racing or palpitations. GI: Denies abdominal pain, denies changes in bowel, denies nausea or vomiting. : Denies changes in urination Extremity: Denies swelling Musculoskeletal: Patient denies arthralgias or myalgias. Neuro: Patient admits to tremor mainly in right upper extremity but he denies headache, paresthesias or focal neurologic deficits. Heme: Denies any bleeding or bruising Skin: Denies rashes Psychiatric: No complaints voiced related to uncontrolled depression or anxiety. Endocrine: No polyuria, polydipsia or polyphagia. The rest of the 14 point ROS was negative except for positives in HPI. Vital Signs Vital Signs Vital Signs: 02/11/24 00:46 Temperature 98 F Temperature Source Temporal Pulse Rate 84 Respiratory Rate 16 Blood Pressure 145/102 H Blood Pressure Mean 116 Pulse Ox 97 Oxygen Delivery Method Room Air Weight Weight: 260 lb 9.382 oz Body Mass Index (BMI) 33.4 Physical Exam Const alert, oriented x3, no apparent distress and average body habitus Constitutional Narrative: Patient has a depressed flat affect and his face is flushed with evidence of resolving rash. General Appearance: cooperative HEENT normocephalic, head/scalp atraumatic, hearing grossly normal bilaterally and moist oral mucous membranes Eyes PERRL and EOMs intact bilaterally Neck no lymphadenopathy and supple Resp normal respiratory effort, no retractions, no use of accessory muscles and clear to auscultation bilaterally Cardio regular rate and regular rhythm GI normal to inspection, nondistended, normoactive bowel sounds, soft to palpation, non-tender and non-distended Extremity normal to inspection and full ROM Skin Skin Narrative: Patient has evidence of facial flushing and resolving rash. Neuro oriented x3, CN's II-XII intact bilaterally, moves all extremities and no focal motor deficits Sensorium / Orientation: awake, alert, oriented to person, oriented to place and oriented to time Speech: speech normal Motor Exam: strength 5/5 throughout Psych Mood & Affect: depressed Results Medical Records Data Attestation: I reviewed the patient's medical records Lab / Micro Data Attestation: I reviewed the patient's lab results. 02/11/24 01:31 02/11/24 01:31 Assessment & Plan Assessment/Plan (1) Alcohol intoxication: QUALIFIERS: Complication of substance-induced condition: uncomplicated Qualified Code(s): F10.920 - Alcohol use, unspecified with intoxication, uncomplicated (2) Alcohol abuse: (3) Fibromyalgia: (4) Hypertension: QUALIFIERS: Hypertension type: unspecified Qualified Code(s): I10 - Essential (primary) hypertension PLAN: Plan 1. Acute alcohol intoxication in the setting of chronic recalcitrant alcohol abuse since age 13 with the patient drinking six 12 ounce tall boy beers daily routinely - Admit to general medical floor for medical stabilization with alcohol detox protocol primarily consisting of phenobarbital taper. Alcohol cessation was strongly encouraged. Finally, we will consult case management and [facility] program to see this patient on rounds in the a.m. to help him formulate and execute a plan for sobriety. 2. Recent admission here from February 06, 2024 to February 10, 2024 for help after he requested alcohol detoxification - Noted. 3. Essential hypertension - Resume home regimen plus give as needed IV hydralazine for systolic blood pressure greater than 160 mmHg. 4. Obesity; with BMI of 33.5 this admission - Weight loss will be recommended. 5. Depression with anxiety - Continue home medications as previous. 6. Fibromyalgia - Stable. 7. Gout - Chronic and stable with no evidence of acute flare. 8. Allergic rhinitis - Stable. 9. GERD - Resume PPI. 10. DVT prophylaxis - Lovenox 40 mg sq daily. Total time: Approximately 45 minutes. Charges/Coding Visit Charges Inpatient E&M: 36510 Init Hosp L1
[2024-02-11] MEDS: LORazepam 2 MG/ML Syringe IV (01:31)
[2024-02-11] MEDS: 0.9% Normal Saline (1000mL) 1,000 ML 999 ML IV (01:31)
[2024-02-11 01:45] LABS: Absolute Neutrophil Count 8.1 X10^3/uL (2.0-7.7); Basophil# 0.06 X10^3/uL; Basophil% 0.6 % (0-1); Eosinophil# 0.01 X10^3/uL; Eosinophils% 0.1 % (0-5); Hemoglobin 15.2 g/dL (13.0-16.5); Lymphocyte % 14.4 % (19-41); Mean Corp Hgb Conc 33.8 g/dL (32-36); Mean Corpuscular Volume 97.8 fL (80-94); Mean Platelet Vol. 9.8 fl (6.2-12.0); Monocyte# 0.69 X10^3/uL; Monocyte% 6.6 % (0-10); NRBC Flagged by Analyzer 0 % (0-5); Neutrophil # 8.07 X10^3/uL (2.7-7.7); Neutrophil % 77.2 % (47-70); Platelet Count 243 K/mm3 (150-450); RBC Distribution Width CV 13.9 % (11.6-14.6); RBC Distribution Width SD 49.7 fl (35.1-43.9); White Blood Count 10.4 K/mm3 (4.4-11.0)
[2024-02-11 02:03] LABS: AST(SGOT) 50 U/L (15-37); Alanine Aminotransfer ALT/SGPT 63 U/L (16-61); Albumin, Serum 3.5 g/dL (3.2-5.0); Alkaline Phosphatase 64 U/L (45-117); Anion Gap 8 (5-15); BUN 13 mg/dL (7-18); BUN/Creat Ratio 14.7 RATIO (10-20); Calcium,Total 8.9 mg/dL (8.5-10.1); Chloride 106 mmol/L (98-107); Creatinine, Serum 0.88 mg/dL (0.70-1.30); EST Glomerular Filtration Rate 95 mL/min (>60); Est Glom Filt Rate - Afr Amer 115 mL/min (>60); Estimated Creatinine Clearance 129.59 ml/min; Globulin 3.9 g/dL (2.2-4.2); Glucose 101 mg/dL (74-106); Magnesium 1.9 mg/dL (1.6-2.6); Potassium 4.1 mmol/L (3.5-5.1); Protein, Total 7.4 g/dL (6.4-8.2); Sodium Level 140 mmol/L (136-145)
[2024-02-11 02:23] LABS: Amphetamine Urine VISTA NEGATIVE (<1000 ng/mL); Barbiturate Urine VISTA POSITIVE (< 200 ng/mL); Benzodiazepine Urine VISTA POSITIVE (< 200 ng/mL); Cocaine Urine VISTA NEGATIVE (< 300 ng/mL); Ecstacy Urine VISTA NEGATIVE (< 500 ng/mL); Methadone Urine VISTA NEGATIVE (< 300 ng/mL); PCP Urine VISTA NEGATIVE (< 25 ng/mL); THC Urine VISTA NEGATIVE (< 50 ng/mL); Vista UDS pH Range 4
[2024-02-11] MEDS: Phenobarbital 32.4 MG Tablet PO ×6 (02:42→21:39)
[2024-02-11] MEDS: Enoxaparin 40 MG/0.4 ML Syringe SC (06:17)
[2024-02-11] MEDS: MethylPREDNISolone 4 MG Tablet PO ×4 (07:54→21:39)
[2024-02-11] MEDS: Allopurinol 300 MG Tablet PO (07:55)
[2024-02-11] MEDS: ARIPiprazole 2 MG Tablet PO (07:55)
[2024-02-11] MEDS: Pantoprazole Sodium 40 MG Tablet PO (07:56)
[2024-02-11] MEDS: amLODIPine 5 MG Tablet PO (07:56)
[2024-02-11] MEDS: Loratadine 10 MG Tablet PO (07:56)
[2024-02-11] MEDS: busPIRone 5 MG Tablet 7.5 MG PO ×2 (07:56→21:39)
[2024-02-11] MEDS: Folic Acid 1 MG Tablet PO (07:57)
[2024-02-11] MEDS: Cholecalciferol (VIT D3) 25 MCG TABLET (1,000 UNITS) PO (07:57)
[2024-02-11] MEDS: Multivitamins,Therapeutic Tablet 1 TABLET PO (07:57)
[2024-02-11] MEDS: Gabapentin 300 MG Capsule PO ×2 (08:00→21:39)
[2024-02-11] MEDS: hydroCHLOROthiazide 25 MG Tablet PO (08:05)
[2024-02-11] MEDS: Thiamine Hydrochloride 100 MG Tablet PO (08:06)
--- NOTE | 2024-02-11 09:15 | PN.HOSP_ITS ---
Reason for Visit Reason for Visit: Diagnoses Alcohol abuse, uncomplicated (02/11/24) Alcohol use, unspecified with intoxication, uncomplicated (02/11/24) Essential (primary) hypertension (02/11/24) Fibromyalgia (02/11/24) Objective Data Objective Data Vital Signs: Vital Signs Temp Pulse Resp BP Pulse Ox O2 Del Method 97.1 F L 69 18 125/80 H 97 Room Air 02/11/24 06:21 02/11/24 06:21 02/11/24 06:21 02/11/24 06:21 02/11/24 06:21 02/11/24 06:21 Oxygen Delivery Method Room Air Weight: 252 lb 10.396 oz Body Mass Index (BMI) 32.8 Intake & Output: Intake and Output for Last 24 Hours 02/09/24 02/10/24 02/11/24 23:59 23:59 23:59 Intake Total 1082.35 / 1082.35 Balance 1082.35 / 1082.35 Lab / Micro Data 02/11/24 01:31 02/11/24 01:31 Labs: Laboratory Results - last 24 hr 02/11/24 01:31: WBC 10.4, RBC 4.60, Hgb 15.2, Hct 45.0, MCV 97.8 H, MCH 33.0 H, MCHC 33.8, RDW Std Deviation 49.7 H, RDW Coeff of Hubert 13.9, Plt Count 243, MPV 9.8, Immature Gran % (Auto) 1.100 H, Neut % (Auto) 77.2 H, Lymph % (Auto) 14.4 L , [place] % (Auto) 6.6, Eos % (Auto) 0.1, Baso % (Auto) 0.6, Absolute Neuts (auto) 8.1 H, Absolute Lymphs (auto) 1.50, Nucleated RBC % 0, Sodium 140, Potassium 4.1, Chloride 106, Carbon Dioxide 26.0, Anion Gap 8, BUN 13, Creatinine 0.88, Estim Creat Clear Calc 129.59, Est GFR (MDRD) Af Amer 115, Est GFR (MDRD) Non-Af 95, BUN/Creatinine Ratio 14.7, Glucose 101, Calcium 8.9, Magnesium 1.9, Total Bilirubin 0.20, Direct Bilirubin 0.10, AST 50 H, ALT 63 H, Alkaline Phosphatase 64, Total Protein 7.4, Albumin 3.5, Globulin 3.9, Urine Opiates Screen NEGATIVE, Urine Methadone Screen NEGATIVE, Ur Barbiturates Screen POSITIVE H, Ur Phencyclidine Scrn NEGATIVE, Ur Amphetamines Screen NEGATIVE, MDMA (Ecstasy) Screen NEGATIVE, U Benzodiazepines Scrn POSITIVE H, Urine Cocaine Screen NEGATIVE, U Cannabinoids Screen NEGATIVE, Ur Drug Screen Comment , Ethyl Alcohol 31.0 Physical Exam Narrative Patient admitted with acute alcohol withdrawal syndrome. Patient stated he had hallucinations, restlessness and could not sleep well. Physical exam General: Alert, Oriented x3, Cooperative. HEENT: Face flushed. Atraumatic, PERRLA, EOMI, Normocephalic Oral: Oral mucosa dry. No Gingival or Mucosal Lesions/ Ulcerations Neck: Supple, No JVD, Negative Carotid Bruits Chest wall/Lungs: Air entry diminished in bilateral lung bases. No crepitation/rhonchi Cardiovascular: Regular rate, Regular Rhythm, Normal S1, Normal S2, No M/G/R. Abdomen: Bowel Sounds Present, Soft, Non Tender, Non-Distended. No ascites. : No dysuria. No renal angle tenderness. No suprapubic tenderness. Extremities: No edema, Capillary Refill Less than 3 Seconds Skin: No rashes, No breakdown Musculoskeletal: No Tenderness to Palpation of Joints or Extremities Neurological: Cranial nerves II-XII grossly intact, DTR 2+/4. No acute focal neurological deficit. Psych/Mental Status: Flat affect. Hallucination Assessment & Plan Assessment/Plan (1) Alcohol intoxication: QUALIFIERS: Complication of substance-induced condition: uncomplicated Qualified Code(s): F10.920 - Alcohol use, unspecified with intoxication, uncomplicated (2) Alcohol abuse: (3) Fibromyalgia: (4) Hypertension: QUALIFIERS: Hypertension type: unspecified Qualified Code(s): I10 - Essential (primary) hypertension PLAN: Plan 53-year-old gentleman being admitted for acute alcohol intoxication and then subsequent acute alcohol withdrawal syndrome. 1. Acute alcohol withdrawal syndrome with history of chronic alcohol use, dependence and alcohol intoxication: Patient is being admitted as MedSurg floor in ICU. History of chronic recalcitrant alcohol abuse since age 13 with the patient drinking six 12 ounce tall boy beers daily routinely: Patient is being admitted to MedSurg floor. Patient on phenobarbital based order set along with other adjunctive medications gabapentin, Bentyl, Vistaril, clonidine, Klonopin as needed for alcohol withdrawal symptom control. Patient is on thiamine and folate acid. CIWA monitor. product marketing manager consulted.. 2. Recent admission here from February 06, 2024 to February 10, 2024 for help after he requested alcohol detoxification - 3. Essential hypertension - Resume home regimen plus give as needed IV hydralazine for systolic blood pressure greater than 160 mmHg. 4. Obesity; with BMI of 33.5 this admission - Weight loss will be recommended. 5. Depression with anxiety - Continue home medications as previous. 6. Fibromyalgia - Stable. 7. Gout - Chronic and stable with no evidence of acute flare. 8. Allergic rhinitis - Stable. 9. GERD - Resume PPI. 10. DVT prophylaxis - Lovenox 40 mg sq daily. Charges/Coding Visit Charges Inpatient E&M: 77597 Subs Hosp L2
[2024-02-11] MEDS: Losartan Potassium 100 MG Tablet PO (10:51)
--- NOTE | 2024-02-11 12:11 | ADDICTION ---
This information writer met with PT to conduct ASAM, MSE, and AUDIT assessments and to plan for d/c. PT was A+Ox4 and participated actively. All assessments completed and placed in PT's chart. [facility], reports he needs to go home first to get things wrapped up and get my car out of impound. This is pt's 3rd time in detox wiithout any follow up. TW informed pt the recommendation if pt returns will be inpatient treatment directly from detox. PT did not indicate a need for transportation post d/c from [facility].
[2024-02-11] MEDS: Ibuprofen 600 MG Tablet PO (21:39)
[2024-02-11] MEDS: Nortriptyline 25 MG Capsule PO (21:39)
[2024-02-11] MEDS: hydrOXYzine PAM 25 MG Capsule PO (21:40)
[2024-02-12] MEDS: Phenobarbital 32.4 MG Tablet PO ×6 (02:04→21:04)
[2024-02-12 04:00] VITALS: BP 126/66; PULSE 54; RESP 16; TEMP 36.5; O2SAT 99
[2024-02-12] MEDS: Enoxaparin 40 MG/0.4 ML Syringe SC (06:35)
[2024-02-12 07:30] VITALS: BP 119/80; PULSE 81; RESP 16; TEMP 36.5; O2SAT 99
[2024-02-12] MEDS: Folic Acid 1 MG Tablet PO (07:33)
[2024-02-12] MEDS: Multivitamins,Therapeutic Tablet 1 TABLET PO (07:33)
[2024-02-12] MEDS: MethylPREDNISolone 4 MG Tablet PO ×3 (07:33→21:04)
[2024-02-12] MEDS: Cholecalciferol (VIT D3) 25 MCG TABLET (1,000 UNITS) PO (07:33)
[2024-02-12] MEDS: hydroCHLOROthiazide 25 MG Tablet PO (07:33)
[2024-02-12] MEDS: Allopurinol 300 MG Tablet PO (07:34)
[2024-02-12] MEDS: Losartan Potassium 100 MG Tablet PO (07:34)
[2024-02-12] MEDS: busPIRone 5 MG Tablet 7.5 MG PO ×2 (07:34→21:04)
[2024-02-12] MEDS: Pantoprazole Sodium 40 MG Tablet PO (07:34)
[2024-02-12] MEDS: Thiamine Hydrochloride 100 MG Tablet PO (07:34)
[2024-02-12] MEDS: ARIPiprazole 2 MG Tablet PO (07:34)
[2024-02-12] MEDS: amLODIPine 5 MG Tablet PO (07:35)
[2024-02-12] MEDS: Loratadine 10 MG Tablet PO (07:35)
--- NOTE | 2024-02-12 10:05 | PCM.PN.HOSP ---
Reason for Visit Reason for Visit: Diagnoses Alcohol abuse, uncomplicated (02/11/24) Alcohol use, unspecified with intoxication, uncomplicated (02/11/24) Essential (primary) hypertension (02/11/24) Fibromyalgia (02/11/24) Objective Data Objective Data Vital Signs: Vital Signs Temp Pulse Resp BP Pulse Ox O2 Del Method 97.7 F L 81 16 119/80 99 Room Air 02/12/24 07:30 02/12/24 07:30 02/12/24 07:30 02/12/24 07:30 02/12/24 07:30 02/12/24 07:30 Oxygen Delivery Method Room Air Weight: 252 lb 10.396 oz Body Mass Index (BMI) 32.8 Intake & Output: Intake and Output for Last 24 Hours 02/10/24 02/11/24 02/12/24 23:59 23:59 23:59 Intake Total 1562.35 / 1562.35 Output Total 375 / 375 Balance 1187.35 / 1187.35 Lab / Micro Data 02/11/24 01:31 02/11/24 01:31 Physical Exam Narrative Patient admitted with acute alcohol withdrawal syndrome. Patient slept well. He is feeling better. Anxiety and restlessness is better. Shaking is gone. Does not feel craving for alcohol. Physical exam General: Alert, Oriented x3, Cooperative. HEENT: Face flushed. Atraumatic, PERRLA, EOMI, Normocephalic Oral: Oral mucosa dry. No Gingival or Mucosal Lesions/ Ulcerations Neck: Supple, No JVD, Negative Carotid Bruits Chest wall/Lungs: Air entry diminished in bilateral lung bases. No crepitation/rhonchi Cardiovascular: Regular rate, Regular Rhythm, Normal S1, Normal S2, No M/G/R. Abdomen: Bowel Sounds Present, Soft, Non Tender, Non-Distended. No ascites. : No dysuria. No renal angle tenderness. No suprapubic tenderness. Extremities: No edema, Capillary Refill Less than 3 Seconds Skin: No rashes, No breakdown Musculoskeletal: No Tenderness to Palpation of Joints or Extremities Neurological: Cranial nerves II-XII grossly intact, DTR 2+/4. No acute focal neurological deficit. Psych/Mental Status: Flat affect. Anxiety is controlled. Const alert, oriented x3, no apparent distress and average body habitus Constitutional Narrative: Patient has a depressed flat affect and his face is flushed with evidence of resolving rash. General Appearance: cooperative HEENT normocephalic, head/scalp atraumatic, hearing grossly normal bilaterally and moist oral mucous membranes Eyes PERRL and EOMs intact bilaterally Neck no lymphadenopathy and supple Resp normal respiratory effort, no retractions, no use of accessory muscles and clear to auscultation bilaterally Cardio regular rate and regular rhythm GI normal to inspection, nondistended, normoactive bowel sounds, soft to palpation, non-tender and non-distended Extremity normal to inspection and full ROM Skin Skin Narrative: Patient has evidence of facial flushing and resolving rash. Neuro oriented x3, CN's II-XII intact bilaterally, moves all extremities and no focal motor deficits Sensorium / Orientation: awake, alert, oriented to person, oriented to place and oriented to time Speech: speech normal Motor Exam: strength 5/5 throughout Psych Mood & Affect: depressed Assessment & Plan Assessment/Plan (1) Alcohol intoxication: QUALIFIERS: Complication of substance-induced condition: uncomplicated Qualified Code(s): F10.920 - Alcohol use, unspecified with intoxication, uncomplicated (2) Alcohol abuse: (3) Fibromyalgia: (4) Hypertension: QUALIFIERS: Hypertension type: unspecified Qualified Code(s): I10 - Essential (primary) hypertension PLAN: Plan 53-year-old gentleman being admitted for acute alcohol intoxication and then subsequent acute alcohol withdrawal syndrome. 1. Acute alcohol withdrawal syndrome with history of chronic alcohol use, dependence and alcohol intoxication: Patient is being admitted as MedSurg floor in ICU. History of chronic recalcitrant alcohol abuse since age 13 with the patient drinking six 12 ounce tall boy beers daily routinely: Patient is being admitted to MedSurg floor. Patient on phenobarbital based order set along with other adjunctive medications gabapentin, Bentyl, Vistaril, clonidine, Klonopin as needed for alcohol withdrawal symptom control. Patient is on thiamine and folate acid. [facility] monitor. automation manager consulted.. 02/11: Continue with above medication. Hallucinations anxiety restlessness and shaking is much improved. 2. Recent admission here from February 06, 2024 to February 10, 2024 for help after he requested alcohol detoxification - 3. Essential hypertension - Resume home regimen plus give as needed IV hydralazine for systolic blood pressure greater than 180 mmHg. 4. Obesity; with BMI of 33.5 this admission - Weight loss will be recommended. 5. Depression with anxiety - Continue home medications as previous. 6. Fibromyalgia - Stable. 7. Gout - Chronic and stable with no evidence of acute flare. 8. Allergic rhinitis - Stable. 9. GERD - Resume PPI. 10. DVT prophylaxis - Lovenox 40 mg sq daily. Charges/Coding Visit Charges Inpatient E&M: 20035 Subs Hosp L2
[2024-02-12] MEDS: Ibuprofen 600 MG Tablet PO (14:20)
[2024-02-12] MEDS: hydrOXYzine PAM 25 MG Capsule PO ×2 (14:20→21:04)
[2024-02-12 14:25] VITALS: BP 121/54; PULSE 85; RESP 18; TEMP 36.6; O2SAT 99
[2024-02-12 20:59] VITALS: BP 120/76; PULSE 70; RESP 18; TEMP 36.7; O2SAT 96
[2024-02-12] MEDS: Nortriptyline 25 MG Capsule PO (21:04)
[2024-02-13] MEDS: Phenobarbital 32.4 MG Tablet PO ×5 (02:55→21:56)
[2024-02-13 02:56] VITALS: BP 116/83; PULSE 59; RESP 18; TEMP 36.3; O2SAT 100
[2024-02-13] MEDS: Enoxaparin 40 MG/0.4 ML Syringe SC (06:36)
[2024-02-13 07:17] VITALS: BP 120/76; PULSE 64; PULSE 70; RESP 16; TEMP 36.4; O2SAT 98
[2024-02-13] MEDS: Ondansetron 8 MG Tablet PO (07:28)
[2024-02-13] MEDS: Allopurinol 300 MG Tablet PO (07:29)
[2024-02-13] MEDS: Cholecalciferol (VIT D3) 25 MCG TABLET (1,000 UNITS) PO (07:29)
[2024-02-13] MEDS: Folic Acid 1 MG Tablet PO (07:29)
[2024-02-13] MEDS: Multivitamins,Therapeutic Tablet 1 TABLET PO (07:29)
[2024-02-13] MEDS: busPIRone 5 MG Tablet 7.5 MG PO ×2 (07:30→21:57)
[2024-02-13] MEDS: MethylPREDNISolone 4 MG Tablet PO ×2 (07:30→21:57)
[2024-02-13] MEDS: Pantoprazole Sodium 40 MG Tablet PO (07:31)
[2024-02-13] MEDS: Loratadine 10 MG Tablet PO (07:31)
[2024-02-13] MEDS: Thiamine Hydrochloride 100 MG Tablet PO (07:31)
[2024-02-13 09:39] VITALS: BP 123/75; PULSE 69
[2024-02-13] MEDS: amLODIPine 5 MG Tablet PO (09:43)
[2024-02-13] MEDS: ARIPiprazole 2 MG Tablet PO (09:43)
[2024-02-13] MEDS: hydroCHLOROthiazide 25 MG Tablet PO (09:43)
[2024-02-13] MEDS: Losartan Potassium 100 MG Tablet PO (10:43)
[2024-02-13 10:45] VITALS: BP 126/73; PULSE 69
--- NOTE | 2024-02-13 15:10 | PCM.PN.HOSP ---
Reason for Visit Reason for Visit: Diagnoses Alcohol abuse, uncomplicated (02/11/24) Alcohol use, unspecified with intoxication, uncomplicated (02/11/24) Essential (primary) hypertension (02/11/24) Fibromyalgia (02/11/24) Objective Data Objective Data Vital Signs: Vital Signs Temp Pulse Resp BP Pulse Ox O2 Del Method 97.6 F L 69 16 126/73 H 98 Room Air 02/13/24 07:17 02/13/24 10:45 02/13/24 07:17 02/13/24 10:45 02/13/24 07:17 02/13/24 07:17 Oxygen Delivery Method Room Air Weight: 252 lb 10.396 oz Body Mass Index (BMI) 32.8 Intake & Output: Intake and Output for Last 24 Hours 02/11/24 02/12/24 02/13/24 23:59 23:59 23:59 Intake Total 1562.35 / 1562.35 Output Total 375 / 375 Balance 1187.35 / 1187.35 Lab / Micro Data 02/11/24 01:31 02/11/24 01:31 Physical Exam Narrative Patient admitted with acute alcohol withdrawal syndrome. He feels better. Symptoms are well-controlled. Patient wanted to go home. Does not feel craving for alcohol. Physical exam General: Alert, Oriented x3, Cooperative. HEENT: Face flushed. Atraumatic, PERRLA, EOMI, Normocephalic Oral: Oral mucosa dry. No Gingival or Mucosal Lesions/ Ulcerations Neck: Supple, No JVD, Negative Carotid Bruits Chest wall/Lungs: Air entry diminished in bilateral lung bases. No crepitation/rhonchi Cardiovascular: Regular rate, Regular Rhythm, Normal S1, Normal S2, No M/G/R. Abdomen: Bowel Sounds Present, Soft, Non Tender, Non-Distended. No ascites. : No dysuria. No renal angle tenderness. No suprapubic tenderness. Extremities: No edema, Capillary Refill Less than 3 Seconds Skin: No rashes, No breakdown Musculoskeletal: No Tenderness to Palpation of Joints or Extremities Neurological: Cranial nerves II-XII grossly intact, DTR 2+/4. No acute focal neurological deficit. Psych/Mental Status: Flat affect. Anxiety is controlled. Assessment & Plan Assessment/Plan (1) Alcohol intoxication: QUALIFIERS: Complication of substance-induced condition: uncomplicated Qualified Code(s): F10.920 - Alcohol use, unspecified with intoxication, uncomplicated (2) Alcohol abuse: (3) Fibromyalgia: (4) Hypertension: QUALIFIERS: Hypertension type: unspecified Qualified Code(s): I10 - Essential (primary) hypertension PLAN: Plan 53-year-old gentleman being admitted for acute alcohol intoxication and then subsequent acute alcohol withdrawal syndrome. Patient had previous hospitalization between 02/05 to 02/10/2024 and then got admitted after 1 done 02/10. 1. Acute alcohol withdrawal syndrome with history of chronic alcohol use, dependence and alcohol intoxication: Patient is being admitted as MedSurg floor in ICU. History of chronic recalcitrant alcohol abuse since age 13 with the patient drinking six 12 ounce tall boy beers daily routinely: Patient is being admitted to MedSurg floor. Patient on phenobarbital based order set along with other adjunctive medications gabapentin, Bentyl, Vistaril, clonidine, Klonopin as needed for alcohol withdrawal symptom control. Patient is on thiamine and folate acid. CIWA monitor. seniour insight manager consulted.. 02/11: Continue with above medication. Hallucinations anxiety restlessness and shaking is much improved. 02/12: Patient wants to go home. Patient is still on the high dose of phenobarbitone 64.8 mg tapering dose regimen. I recommended to stay 1 more day even though RENETTA score is 0. He agreed. Patient completed full treatment last time service and he got readmitted after 1 day of discharge. 2. Recent admission here from February 06, 2024 to February 10, 2024 for help after he requested alcohol detoxification - 3. Essential hypertension - Resume home regimen plus give as needed IV hydralazine for systolic blood pressure greater than 180 mmHg. 4. Obesity; with BMI of 33.5 this admission - Weight loss will be recommended. 5. Depression with anxiety - Continue home medications as previous. 6. Fibromyalgia - Stable. 7. Gout - Chronic and stable with no evidence of acute flare. 8. Allergic rhinitis - Stable. 9. GERD - Resume PPI. 10. DVT prophylaxis - Lovenox 40 mg sq daily. Charges/Coding Visit Charges Inpatient E&M: 60045 Subs Hosp L2
[2024-02-13 15:59] VITALS: BP 113/65; PULSE 77; RESP 18; TEMP 36.8; O2SAT 95
[2024-02-13 21:53] VITALS: BP 129/74; PULSE 72; RESP 18; TEMP 36.6; O2SAT 97
[2024-02-13] MEDS: hydrOXYzine PAM 25 MG Capsule PO (21:56)
[2024-02-13] MEDS: Nortriptyline 25 MG Capsule PO (21:57)
[2024-02-14 05:00] VITALS: BP 115/79; PULSE 70; RESP 18; TEMP 36.3; O2SAT 98
[2024-02-14] MEDS: Phenobarbital 32.4 MG Tablet PO ×2 (05:08→11:43)
[2024-02-14] MEDS: Pantoprazole Sodium 40 MG Tablet PO (07:45)
[2024-02-14] MEDS: hydroCHLOROthiazide 25 MG Tablet PO (07:45)
[2024-02-14] MEDS: Allopurinol 300 MG Tablet PO (07:45)
[2024-02-14] MEDS: busPIRone 5 MG Tablet 7.5 MG PO (07:45)
[2024-02-14] MEDS: Loratadine 10 MG Tablet PO (07:45)
[2024-02-14] MEDS: Cholecalciferol (VIT D3) 25 MCG TABLET (1,000 UNITS) PO (07:46)
[2024-02-14] MEDS: Thiamine Hydrochloride 100 MG Tablet PO (07:46)
[2024-02-14] MEDS: Multivitamins,Therapeutic Tablet 1 TABLET PO (07:46)
[2024-02-14] MEDS: Losartan Potassium 100 MG Tablet PO (07:46)
[2024-02-14] MEDS: Folic Acid 1 MG Tablet PO (07:47)
[2024-02-14] MEDS: ARIPiprazole 2 MG Tablet PO (07:47)
[2024-02-14] MEDS: MethylPREDNISolone 4 MG Tablet PO (07:47)
[2024-02-14] MEDS: amLODIPine 5 MG Tablet PO (07:49)
[2024-02-14 07:50] VITALS: BP 128/87; PULSE 78; RESP 18; TEMP 36.8; O2SAT 98
--- NOTE | 2024-02-14 10:44 | PCM.DC ---
Discharge Instructions Diet Discharge Diet: Low fat / Low cholesterol Activity Discharge Activity: Return to Normal Activity Weight Bearing Status: Weight bearing as tolerated Dressing / Incision Call your doctor if you observe: Fever of 101 or Higher, Coldness, Increased Pain, Numbness or Tingling, Change in Color, Inability to urinate, Inability to have a bowel movement, Shortness of breath, Dizziness, Fainting spells, Swelling in the ankles, Chest pain, Prolonged hiccupping, Increased palpitations (irregular heartbeat) and Calf discomfort Follow Up Care When: IN 2 WEEKS Test Results: Test results from this visit will be discussed in further detail at your follow-up appointment, if applicable. Discharge Plan Admission Admit Date/Time: 02/11/24 01:38 Primary Reason for Your Visit: Acute alcohol withdrawal syndrome Attending Provider: Nigel Lacey Primary Care Provider: Shasha Newman NP Consulting Providers: Moise Claudio Instructions Additional Instructions / Restrictions: May need follow-up with professional architect in 2 weeks if facial rash does not clear away Discharge Orders/Prescriptions Prescriptions: New hydrochlorothiazide 25 mg Tablet 12.5 mg PO DAILY Qty: 30 0RF losartan 100 mg Tablet 100 mg PO DAILY 30 Days Qty: 30 1RF Continued omeprazole 40 mg capsule,delayed release(DR/EC) 40 mg PO DAILY Patient Comments: TAKE 1 CAPSULE BY MOUTH DAILY for GERD allopurinol 300 mg tablet 300 mg PO DAILY Patient Comments: Take 1 tablet by mouth once daily. dicyclomine 10 mg capsule 10 mg PO Q8H PRN PRN (Reason: stomach cramps) Patient Comments: Take 1 capsule by mouth every 8 hours as needed (abdomial cramps). cetirizine 10 mg tablet 10 mg PO DAILY Patient Comments: Take 1 tablet by mouth once daily. hydroxyzine pamoate 25 mg capsule 25 mg PO Q4H PRN (Reason: anxiety) Patient Comments: TAKE 1 CAPSULE BY MOUTH EVERY 4 HOURS NEEDED FOR ANXIETY cholecalciferol (vitamin D3) [Vitamin D3] 25 mcg (1,000 unit) tablet 25 mcg PO DAILY Patient Comments: Take 2 tablets by mouth once daily. colchicine 0.6 mg tablet 1.2 mg PO DAILY PRN Patient Comments: Take 2 tablets upon flare up and 1 tablet one hour later. multivitamin with folic acid [Tab-A-Robert] 400 mcg tablet 1 tab PO DAILY Patient Comments: Take 1 tablet by mouth daily with breakfast. nortriptyline 25 mg capsule 25 mg PO QHS Patient Comments: TAKE 1 CAPSULE BY MOUTH EVERY NIGHT AT BEDTIME FOR INSOMNIA and pain amlodipine 5 mg tablet 5 mg PO DAILY buspirone 7.5 mg tablet 7.5 mg PO BID cholecalciferol (vitamin D3) 25 mcg (1,000 unit) capsule 50 mcg PO DAILY aripiprazole 2 mg tablet 2 mg PO DAILY thiamine HCl (vitamin B1) 100 mg tablet 100 mg PO DAILY losartan-hydrochlorothiazide 100-25 mg tablet 1 tab PO DAILY pantoprazole 40 mg tablet,delayed release (DR/EC) 40 mg PO DAILY folic acid 1 mg tablet 1 mg PO DAILY ibuprofen 600 mg tablet 600 mg PO Q6H PRN PRN (Reason: pain) gabapentin 300 mg Capsule 300 mg PO Q8H PRN PRN (Reason: moderate to severe anxiety) Qty: 21 0RF trazodone 100 mg Tablet 100 mg PO QHS PRN PRN (Reason: Insomnia) Qty: 7 0RF methylprednisolone [Medrol (Jeancarlos)] 4 mg tablets,dose pack 4 mg PO DAILY Qty: 21 0RF Held bupropion HCl 150 mg tablet extended release 24 hr 150 mg PO DAILY Hold Instructions: Hold it as he got the fascial rash from that Patient Comments: TAKE 1 TABLET BY MOUTH DAILY Referrals / Follow Up: Shasha Newman NP, [employer] OPERATOR-C [Primary Care Provider] - Within 2 Weeks Disposition Disposition (needs filled in before D/C Order can be placed): Home, Self Care
[2024-02-14 14:10] VITALS: BP 153/96; PULSE 77; RESP 18; TEMP 37; O2SAT 98
--- NOTE | 2024-02-14 14:12 | PCM.DC.SUM ---
Providers Date of Admission: 02/11/24 Primary Care Physician: MARTIR SuhC Reason For Visit: ACUTE ALCOHOL INTOXICATION IN THE SETTING OF Diagnosis Discharge Diagnosis (1) Alcohol intoxication: Status: Acute Code(s): F10.929 - Alcohol use, unspecified with intoxication, unspecified Qualifiers: Complication of substance-induced condition: uncomplicated Qualified Code(s): F10.920 - Alcohol use, unspecified with intoxication, uncomplicated (2) Alcohol abuse: Status: Acute Code(s): F10.10 - Alcohol abuse, uncomplicated (3) Fibromyalgia: Status: Acute Code(s): M79.7 - Fibromyalgia (4) Hypertension: Status: Chronic Code(s): I10 - Essential (primary) hypertension Qualifiers: Hypertension type: unspecified Qualified Code(s): I10 - Essential (primary) hypertension Plan 53-year-old gentleman being admitted for acute alcohol intoxication and then subsequent acute alcohol withdrawal syndrome. Patient had previous hospitalization between 02/05 to 02/10/2024 and then got admitted after 1 done 02/10. 1. Acute alcohol withdrawal syndrome with history of chronic alcohol use, dependence and alcohol intoxication: Patient is being admitted as MedSurg floor in ICU. History of chronic recalcitrant alcohol abuse since age 13 with the patient drinking six 12 ounce tall boy beers daily routinely: Patient is being admitted to MedSurg floor. Patient on phenobarbital based order set along with other adjunctive medications gabapentin, Bentyl, Vistaril, clonidine, Klonopin as needed for alcohol withdrawal symptom control. Patient is on thiamine and folate acid. CIWA monitor. alumni relations manager consulted.. 02/11: Continue with above medication. Hallucinations anxiety restlessness and shaking is much improved. 02/12: Patient wants to go home. Patient is still on the high dose of phenobarbitone 64.8 mg tapering dose regimen. I recommended to stay 1 more day even though RENETTA score is 0. He agreed. Patient completed full treatment last time service and he got readmitted after 1 day of discharge. 02/13: CIWA score is 0. Patient doing good. Facial rash most likely allergic from medications: He said i the rash on the malar region face, started after he started taking bupropion. Bupropion is discontinued. Advised emollient/moisturizer on face and if does not get better will need follow-up with senior sourcing manager. If it does not get better will need steroid cream by PCP/senior sourcing manager. Does not look like acne rosacea. 2. Recent admission here from February 06, 2024 to February 10, 2024 for help after he requested alcohol detoxification - 3. Essential hypertension - Resume home regimen plus give as needed IV hydralazine for systolic blood pressure greater than 180 mmHg. 4. Obesity; with BMI of 33.5 this admission - Weight loss will be recommended. 5. Depression with anxiety - Continue home medications as previous. 6. Fibromyalgia - Stable. 7. Gout - Chronic and stable with no evidence of acute flare. 8. Allergic rhinitis - Stable. 9. GERD - Resume PPI. 10. DVT prophylaxis - Lovenox 40 mg sq daily. Discharge medication reconciliation done. Discharge follow-up instructions completed. Discharge process discussed with the patient and all questions were answered to patient's satisfaction. Follow with PCP in 1 to 2 weeks Total time spent, exact 35 minutes on discharge meds reconciliation, examination, coordination of care with nurses and ancillary staff, review of imaging and blood test and discussion with the patient on follow-up instructions. Medications at Discharge Home Medications allopurinol 300 mg tablet 300 mg PO DAILY 12/09/23 bupropion HCl 150 mg 24 hr tablet, extended release 150 mg PO DAILY 12/09/23 cetirizine 10 mg tablet 10 mg PO DAILY 12/09/23 dicyclomine 10 mg capsule 10 mg PO Q8H PRN PRN stomach cramps 12/09/23 hydroxyzine pamoate 25 mg capsule 25 mg PO Q4H PRN anxiety 12/09/23 omeprazole 40 mg capsule,delayed release 40 mg PO DAILY 12/09/23 cholecalciferol (vitamin D3) 25 mcg (1,000 unit) tablet (Vitamin D3) 25 mcg PO DAILY SUPPLEMENT 12/10/23 colchicine 0.6 mg tablet 1.2 mg PO DAILY PRN GOUT 12/10/23 multivitamin with folic acid 400 mcg tablet (Tab-A-Robert) 1 tab PO DAILY SUPPLEMENT 12/10/23 nortriptyline 25 mg capsule 25 mg PO QHS DEPRESSION/INSOMNIA 12/10/23 amlodipine 5 mg tablet 5 mg PO DAILY 02/06/24 aripiprazole 2 mg tablet 2 mg PO DAILY 02/06/24 buspirone 7.5 mg tablet 7.5 mg PO BID anxiety 02/06/24 cholecalciferol (vitamin D3) 25 mcg (1,000 unit) capsule 50 mcg PO DAILY 02/06/24 folic acid 1 mg tablet 1 mg PO DAILY 02/06/24 ibuprofen 600 mg tablet 600 mg PO Q6H PRN PRN pain 02/06/24 losartan 100 mg-hydrochlorothiazide 25 mg tablet 1 tab PO DAILY 02/06/24 pantoprazole 40 mg tablet,delayed release 40 mg PO DAILY 02/06/24 thiamine HCl (vitamin B1) 100 mg tablet 100 mg PO DAILY 02/06/24 gabapentin 300 mg capsule 300 mg PO Q8H PRN PRN moderate to severe anxiety #21 caps 02/10/24 methylprednisolone 4 mg tablets in a dose pack (Medrol (Jeancarlos)) 4 mg PO DAILY #21 tabs 02/10/24 trazodone 100 mg tablet 100 mg PO QHS PRN PRN Insomnia #7 tabs 02/10/24 hydrochlorothiazide 25 mg tablet 12.5 mg (1/2 x 25 mg) PO DAILY #30 tabs 02/14/24 losartan 100 mg tablet 100 mg PO DAILY 30 days #30 tabs 02/14/24 Physical Exam Narrative Patient admitted with acute alcohol withdrawal syndrome. He feels better. Symptoms are well-controlled. Patient wanted to go home. Does not feel craving for alcohol. Physical exam General: Alert, Oriented x3, Cooperative. HEENT: Face flushed. Atraumatic, PERRLA, EOMI, Normocephalic Oral: Oral mucosa dry. No Gingival or Mucosal Lesions/ Ulcerations Neck: Supple, No JVD, Negative Carotid Bruits Chest wall/Lungs: Air entry diminished in bilateral lung bases. No crepitation/rhonchi Cardiovascular: Regular rate, Regular Rhythm, Normal S1, Normal S2, No M/G/R. Abdomen: Bowel Sounds Present, Soft, Non Tender, Non-Distended. No ascites. : No dysuria. No renal angle tenderness. No suprapubic tenderness. Extremities: No edema, Capillary Refill Less than 3 Seconds Skin: Initially thought flushing from alcohol withdrawal. Erythematous rash over both cheek over medullary prominence. Nasolabial fold is clear Musculoskeletal: No Tenderness to Palpation of Joints or Extremities Neurological: Cranial nerves II-XII grossly intact, DTR 2+/4. No acute focal neurological deficit. Psych/Mental Status: Flat affect. Anxiety is controlled. Weight / BMI Weight Weight: 252 lb 10.396 oz Body Mass Index (BMI) 32.8 ABG / Lab / Microbiology Data 02/11/24 01:31 02/11/24 01:31 D/C Instructions Discharge Diet: Low fat / Low cholesterol Weight Bearing Status: Weight bearing as tolerated Call your doctor if you observe: Fever of 101 or Higher, Coldness, Increased Pain, Numbness or Tingling, Change in Color, Inability to urinate, Inability to have a bowel movement, Shortness of breath, Dizziness, Fainting spells, Swelling in the ankles, Chest pain, Prolonged hiccupping, Increased palpitations (irregular heartbeat) and Calf discomfort When: IN 2 WEEKS Meaningful Use Info Meaningful Use Meaningful Use Diagnoses (Choose all that apply): None applicable Ischemic Stroke Statin Dosing Therapy Reference: STATIN DOSE THERAPY REFERENCE: * Patients > 75 years receive moderate or high dose statin therapy. * Patients 75 years or YOUNGER should receive HIGH intensity statin dose unless contraindicated. You will be required to document reason for non-treatment if statin daily dose does not meet guidelines. HIGH DOSE STATIN THERAPY DAILY Atorvastatin > than or = to 40 mg Rosuvastatin > than or = to 20 mg Amlodipine + Atorvastatin > than or = to 2.5/40 mg Ezetimibe + Simvastatin 10/80 mg Simvastatin 80mg Discharge Plan Admission Admit Date/Time: 02/11/24 01:38 Primary Reason for Your Visit: Acute alcohol withdrawal syndrome Attending Provider: Nigel Lacey Primary Care Provider: Shasha Newmna NP Consulting Providers: Moise Claudio Instructions Additional Instructions / Restrictions: May need follow-up with senior sourcing manager in 2 weeks if facial rash does not clear away Discharge Orders/Prescriptions Prescriptions: New hydrochlorothiazide 25 mg Tablet 12.5 mg PO DAILY Qty: 30 0RF losartan 100 mg Tablet 100 mg PO DAILY 30 Days Qty: 30 1RF Continued omeprazole 40 mg capsule,delayed release(DR/EC) 40 mg PO DAILY Patient Comments: TAKE 1 CAPSULE BY MOUTH DAILY for GERD allopurinol 300 mg tablet 300 mg PO DAILY Patient Comments: Take 1 tablet by mouth once daily. dicyclomine 10 mg capsule 10 mg PO Q8H PRN PRN (Reason: stomach cramps) Patient Comments: Take 1 capsule by mouth every 8 hours as needed (abdomial cramps). cetirizine 10 mg tablet 10 mg PO DAILY Patient Comments: Take 1 tablet by mouth once daily. hydroxyzine pamoate 25 mg capsule 25 mg PO Q4H PRN (Reason: anxiety) Patient Comments: TAKE 1 CAPSULE BY MOUTH EVERY 4 HOURS NEEDED FOR ANXIETY cholecalciferol (vitamin D3) [Vitamin D3] 25 mcg (1,000 unit) tablet 25 mcg PO DAILY Patient Comments: Take 2 tablets by mouth once daily. colchicine 0.6 mg tablet 1.2 mg PO DAILY PRN Patient Comments: Take 2 tablets upon flare up and 1 tablet one hour later. multivitamin with folic acid [Tab-A-Robert] 400 mcg tablet 1 tab PO DAILY Patient Comments: Take 1 tablet by mouth daily with breakfast. nortriptyline 25 mg capsule 25 mg PO QHS Patient Comments: TAKE 1 CAPSULE BY MOUTH EVERY NIGHT AT BEDTIME FOR INSOMNIA and pain amlodipine 5 mg tablet 5 mg PO DAILY buspirone 7.5 mg tablet 7.5 mg PO BID cholecalciferol (vitamin D3) 25 mcg (1,000 unit) capsule 50 mcg PO DAILY aripiprazole 2 mg tablet 2 mg PO DAILY thiamine HCl (vitamin B1) 100 mg tablet 100 mg PO DAILY losartan-hydrochlorothiazide 100-25 mg tablet 1 tab PO DAILY pantoprazole 40 mg tablet,delayed release (DR/EC) 40 mg PO DAILY folic acid 1 mg tablet 1 mg PO DAILY ibuprofen 600 mg tablet 600 mg PO Q6H PRN PRN (Reason: pain) gabapentin 300 mg Capsule 300 mg PO Q8H PRN PRN (Reason: moderate to severe anxiety) Qty: 21 0RF trazodone 100 mg Tablet 100 mg PO QHS PRN PRN (Reason: Insomnia) Qty: 7 0RF methylprednisolone [Medrol (Jeancarlos)] 4 mg tablets,dose pack 4 mg PO DAILY Qty: 21 0RF Held bupropion HCl 150 mg tablet extended release 24 hr 150 mg PO DAILY Hold Instructions: Hold it as he got the fascial rash from that Patient Comments: TAKE 1 TABLET BY MOUTH DAILY Referrals / Follow Up: Shasha Newman NP, SENIOR APPLICATION SOFTWARE ENGINEER-C [Primary Care Provider] - Within 2 Weeks Disposition Disposition (needs filled in before D/C Order can be placed): Home, Self Care Charges/Coding Visit Charges Inpatient E&M: 39422 Disch Hosp >30min
== END 2024-02-14 14:46 | disposition home or self-care (01) | DRG 775 ==
LOC: ED 01:20 → ICU 01:47 → MS3 02-14 14:10 → ICU 06-04 16:06 → MS3 06-04 16:06
PROVIDERS: Admitting Provider Internal Medicine; Emergency Provider Emergency Medicine; PCP Nurse Practitioner Family; Visit Provider Internal Medicine
DX: F10.239 Alcohol dependence with withdrawal, unspecified (principal); F10.229 Alcohol dependence with intoxication, unspecified; E66.9 Obesity, unspecified; I10 Essential (primary) hypertension; M79.7 Fibromyalgia; K21.9 Gastro-esophageal reflux disease without esophagitis; Z68.33 Body mass index [BMI] 33.0-33.9, adult; Z79.899 Other long term (current) drug therapy; Y90.1 Blood alcohol level of 20-39 mg/100 ml; M10.9 Gout, unspecified; F41.8 Other specified anxiety disorders; R21 Rash and other nonspecific skin eruption
CPT/HCPCS: 80048; 80076; 80307; 82077; 83735; 85025; 96372; 96374; 99221; 99284; J7030; A4216; G0378